=== PATIENT | female | born 1940 | race Caucasian/White ===

== ENCOUNTER 2017-11-27 10:26 | Emergency (ER) | payer MEDICARE ==
[~2017-11-27] VITALS: Ht 157.5 cm; Wt 86.2 kg
[~2017-11-27 10:26] MED LIST: ALBU2.5V5 NEB; ALPR0.25 PO; AMLO5TAB7 PO; ASPI-630 PO; ATOR10TA60 PO; ATOR40TA PO; Aspirin PO; CLON1TAB4 PO; FLUT1DIS3 IH; FURO-69 PO; FURO20TA3 PO; GABA-585 PO; HYDR-210 PO; HYDR-2815 PO; HYDR1TAB20 PO; LEVO50TA PO; LISI-334 PO; LISI10TA2 PO; METO-239 PO; METO25TA4 PO; POLY119P4 PO; POTA10TA31 PO; POTA2VIA5 IV; TOPROL XL; TRAM-48 PO; TRAM100T2 PO; TRAM200T3 PO
[2017-11-27 10:58] LABS: BASO % 0 % (0-3); EOS # 0.1 x10^3/uL (0.0-0.7); EOS % 3 % (0-3); HEMATOCRIT 36.3 % (36.0-47.0); HEMOGLOBIN 12.1 g/dL (12.0-15.5); LYMPH % 24 % (24-48); MEAN CORPUSCULAR HEMOGLOBIN 29 pg (25-35); MEAN CORPUSCULAR HGB CONC 33 g/dL (31-37); MEAN CORPUSCULAR VOLUME 88 fL (79-100); MONO # 0.5 x10^3/uL (0.0-1.1); MONO % 12 % (0-9); NEUT # 2.4 x10^3uL (1.8-7.7); NEUT % 60 % (31-73); PLATELET COUNT 228 x10^3/uL (140-400); RED BLOOD COUNT 4.14 x10^6/uL (3.50-5.40); RED CELL DISTRIBUTION WIDTH 13.5 % (11.5-14.5)
[2017-11-27 11:09] LABS: PROTHROMBIN TIME PATIENT 13.2 SEC (11.7-14.0)
--- NOTE | 2017-11-27 11:16 | PHYS DOC ---
Past Medical History Past Medical History: Anxiety, COPD, High Cholesterol, Hypertension Additional Past Medical Histor: home O2 @ 2LPM Past Surgical History: Cholecystectomy, Hip Replacement, Hysterectomy, Knee Replacement, Other Additional Past Surgical Histo: shoulder replacement Alcohol Use: None Drug Use: None Adult General Chief Complaint Chief Complaint: ALTERED MENTAL STATUS HPI HPI Patient is a 77 year old female who presents to the ED with altered mental status. Patient is not a very reliable historian. She was brought in to the ED via EMS after her roommate found that she had fallen off of her bed. She was on the floor for about 20 minutes. Patient reports she remembers falling and denies any trauma or loss of consciousness. Patient's roommate notes that she has been confused for the past 3 days; however, patient is not sure what he means by this and denies any confusion. She is alert and oriented only to person and slightly to situation. She denies shortness of breath, chest pain, headache, dizziness, abdominal pain, nausea, vomiting, numbness, or tingling. She is on 2L of continuous oxygen at home; however, when EMS arrived, she was on 0.5L of oxygen. Patient is unable to provide any more information at this time. Review of Systems Review of Systems Constitutional: Denies fever or chills Eyes: Denies change in visual acuity, redness, or eye pain HENT: Denies nasal congestion or sore throat Respiratory: Notes cough; Denies shortness of breath Cardiovascular: Denies chest pain or heart palpitations GI: Denies abdominal pain, nausea, vomiting, bloody stools or diarrhea : Denies dysuria or hematuria Musculoskeletal: Denies back pain or joint pain Integument: Denies rash or skin lesions Neurologic: Notes altered mental status and bilateral hand tremors; Denies headache, focal weakness or sensory changes Complete systems were reviewed and found to be within normal limits, except as documented in this note. Family History Family History Noncontributory Current Medications Current Medications Current Medications Medications (Trade) Dose Ordered Sig/Carmen Start Time Stop Time Status Last Admin Dose Admin Acetaminophen/ Hydrocodone Bitart (Lortab 5/325) 1 tab 1X ONCE 11/27/17 12:30 11/27/17 12:33 DC 11/27/17 12:45 1 TAB Sodium Chloride 1,000 ml @ 1,000 mls/hr 1X ONCE 11/27/17 11:00 10/5/18 11:59 DC 11/27/17 11:33 1,000 MLS/HR Allergies Allergies Allergies Coded Allergies Type Severity Reaction Last Updated Verified carvedilol Allergy Severe 02/19/13 Yes celecoxib Allergy Severe 02/19/13 Yes warfarin sodium Allergy Severe bleeding 02/19/13 Yes Penicillins Allergy Intermediate 02/19/13 Yes Physical Exam Physical Exam Constitutional: Well developed, well nourished, no acute distress HENT: Normocephalic, atraumatic, oropharynx moist Eyes: Conjunctiva normal, no discharge Neck: Normal range of motion, no tenderness, supple Cardiovascular: Heart rate regular rhythm, no murmur Lungs & Thorax: Bilateral breath sounds clear to auscultation Abdomen: Soft, nontender Skin: Warm, dry, no erythema Back: No tenderness, no CVA tenderness Extremities: No tenderness, ROM intact, no edema Neurologic: Alert and oriented X 2, tremors in bilateral hands, normal sensory function, no focal deficits noted Psychologic: Affect normal, judgement normal, mood normal Current Patient Data Vital Signs Vital Signs Date Time Temp Pulse Resp B/P (MAP) Pulse Ox O2 Delivery O2 Flow Rate FiO2 11/27/17 12:45 20 3 Nasal Cannula 11/27/17 11:45 102 11/27/17 10:42 98.7 156/69 (98) 2.0 98.7 Lab Values Laboratory Tests Test 11/27/17 10:40 11/27/17 11:30 White Blood Count 4.0 x10^3/uL (4.0-11.0) Red Blood Count 4.14 x10^6/uL (3.50-5.40) Hemoglobin 12.1 g/dL (12.0-15.5) Hematocrit 36.3 % (36.0-47.0) Mean Corpuscular Volume 88 fL (79-100) Mean Corpuscular Hemoglobin 29 pg (25-35) Mean Corpuscular Hemoglobin Concent 33 g/dL (31-37) Red Cell Distribution Width 13.5 % (11.5-14.5) Platelet Count 228 x10^3/uL (140-400) Neutrophils (%) (Auto) 60 % (31-73) Lymphocytes (%) (Auto) 24 % (24-48) Monocytes (%) (Auto) 12 % (0-9) H Eosinophils (%) (Auto) 3 % (0-3) Basophils (%) (Auto) 0 % (0-3) Neutrophils # (Auto) 2.4 x10^3uL (1.8-7.7) Lymphocytes # (Auto) 1.0 x10^3/uL (1.0-4.8) Monocytes # (Auto) 0.5 x10^3/uL (0.0-1.1) Eosinophils # (Auto) 0.1 x10^3/uL (0.0-0.7) Basophils # (Auto) 0.0 x10^3/uL (0.0-0.2) Prothrombin Time 13.2 SEC (11.7-14.0) Prothrombin Time INR 1.1 (0.8-1.1) PTT 33 SEC (24-38) Sodium Level 143 mmol/L (136-145) Potassium Level 3.5 mmol/L (3.5-5.1) Chloride Level 98 mmol/L (98-107) Carbon Dioxide Level 37 mmol/L (21-32) H Anion Gap 8 (6-14) Blood Urea Nitrogen 12 mg/dL (7-20) Creatinine 0.8 mg/dL (0.6-1.0) Estimated GFR (Cockcroft-Gault) 69.4 BUN/Creatinine Ratio 15 (6-20) Glucose Level 97 mg/dL (70-99) Lactic Acid Level 0.4 mmol/L (0.4-2.0) Calcium Level 8.4 mg/dL (8.5-10.1) L Magnesium Level 1.9 mg/dL (1.8-2.4) Total Bilirubin 0.6 mg/dL (0.2-1.0) Aspartate Amino Transferase (AST) 18 U/L (15-37) Alanine Aminotransferase (ALT) 15 U/L (14-59) Alkaline Phosphatase 96 U/L (46-116) Ammonia 20 mcmol/L (11-34) Creatine Kinase 45 U/L (26-192) Creatine Kinase MB (Mass) 0.8 ng/mL (0.0-3.6) Creatine Kinase MB Relative Index % (0-4) Troponin I Quantitative < 0.017 ng/mL (0.000-0.055) Total Protein 6.1 g/dL (6.4-8.2) L Albumin 3.0 g/dL (3.4-5.0) L Albumin/Globulin Ratio 1.0 (1.0-1.7) Ethyl Alcohol Level < 10 mg/dL (0-10) Urine Collection Type U cath Urine Color Yellow Urine Clarity Clear Urine pH 6.5 Urine Specific [place] 1.015 Urine Protein Negative mg/dL (NEG-TRACE) Urine Glucose (UA) Negative mg/dL (NEG) Urine Ketones (Stick) Negative mg/dL (NEG) Urine Blood Negative (NEG) Urine Nitrite Negative (NEG) Urine Bilirubin Negative (NEG) Urine Urobilinogen Dipstick 1.0 mg/dL (0.2 mg/dL) Urine Leukocyte Esterase Negative (NEG) Urine RBC Occ /HPF (0-2) Urine WBC 1-4 /HPF (0-4) Urine Squamous Epithelial Cells Few /LPF Urine Bacteria 0 /HPF (0-FEW) Urine Mucus Mod /LPF Urine Opiates Screen Pos (NEG) Urine Methadone Screen Neg (NEG) Urine Barbiturates Neg (NEG) Urine Phencyclidine Screen Neg (NEG) Urine Amphetamine/Methamphetamine Neg (NEG) Urine Benzodiazepines Screen Neg (NEG) Urine Cocaine Screen Neg (NEG) Urine Cannabinoids Screen Neg (NEG) Urine Ethyl Alcohol Neg (NEG) Laboratory Tests 11/27/17 10:40 Laboratory Tests 11/27/17 10:40 EKG EKG @ 10:44, normal sinus rhythm at 81 bpm, no ST elevations or reciprocal changes; doubt ischemic etiology Radiology/Procedures Radiology/Procedures PROCEDURE: PORTABLE CHEST 1V Single view of the chest. 11/27/2017 11:00 AM Indication: ALTERED MENTAL STATUS/ COUGH Comparison: Chest radiograph July 20, 2014 Findings: No pneumothorax is identified. Mild diffuse interstitial coarsening is seen. Findings could represent atypical infection or mild edema. There is mild patchy infiltrate in the left lung base. Mild patchy opacities are seen throughout the left lung which could represent atelectasis or pneumonia. Heart size is normal. No acute osseous findings are seen. Right shoulder arthroplasty noted. IMPRESSION: Patchy opacities in left lung posterior atelectasis or infiltrate. Mild diffuse interstitial thickening. Findings could represent edema or an atypical infectious process. Electronically signed by: Christiano Montero MD (11/27/2017 11:39 AM) [facility] PROCEDURE: CT HEAD AND CERVICAL SPINE WO CT head and cervical spine without contrast History: Altered mental status, fall Technique: Noncontrast CT imaging was performed of the head and cervical spine. Multiplanar reconstruction images are submitted. Exposure: One or more of the following individualized dose reduction techniques were utilized for this examination: 1. Automated exposure control 2. Adjustment of the mA and/or kV according to patient size 3. Use of iterative reconstruction technique. Head CT Comparison: March 07, 2014 Findings: No acute extra-axial or parenchymal hemorrhage is identified. There is no significant intra-axial mass effect, midline shift, or extra-axial fluid collection. The rolon-white differentiation of the major vascular territories is preserved. Ventricular size is within normal limits. There is mild supratentorial involutional change. The mastoid air cells and the visualized paranasal sinuses are aerated. There is no significant focal calvarial abnormality. Impression: 1. No acute intracranial abnormality is identified. Cervical spine CT Comparison: None Findings: There is some motion degradation. Cervical vertebral body stature is maintained. There is straightening of the cervical spine. There is negligible anterior spondylolisthesis at C4-C5 and T1-T2. There is more advanced degenerative disc disease C5-6 and C6-7, to lesser degree at C7-T1 minimally at C4-5. There is mild spondylosis greatest at C5-6 and C6-7. No significant cervical spinal stenosis is identified on this nonmyelographic exam. Atlantoaxial distance is within normal limits, associated degenerative change. There is adequate alignment of the lateral masses of C1 relative to C2. Occipital condylar-C1 articulation is preserved. There is multilevel cervical facet degenerative change. There is uncovertebral degenerative change greatest C5-6 and C6-7. There is [id number] narrowing of the left C5-6 and C6-7 neural foramina. There is no significant abnormality of the visualized lung apices. There is atherosclerotic calcification of the carotid arteries in the neck bilaterally, some medial deviation of the carotid arteries greater on the right. There may be a small right thyroid nodule about 0.6 m. There is a focus of calcification left thyroid gland about 0.5 cm. Impression: 1. No acute cervical spine fracture is identified. 2. There is degenerative disc disease greatest C5-6 and C6-7, mild spondylosis. There is multilevel facet degenerative change, mild uncovertebral degenerative change. There is [id number] left C5-6 and C6-7 neural foramina. 3. There may be a small right thyroid nodule. There is also focus of nonspecific calcification of the left thyroid gland. Electronically signed by: Joselito Fernandes MD (11/27/2017 12:29 PM) [facility] Course & Med Decision Making Course & Med Decision Making Patient is a 77 year old female who presents to the ED via EMS with altered mental status x 3 days and a fall. She is on 2L continuous oxygen at home. Pertinent labs and imaging studies were obtained and reviewed (see chart for details). EKG @ 10:44 showed normal sinus rhythm at [address] elevations or reciprocal changes. Doubt ischemic etiology. CBC and CMP showed no abnormalities. Chest x-ray showed patchy opacities in left lung posterior atelectasis or infiltrate. Mild diffuse interstitial thickening. Findings may represent edema or an atypical infectious process. CT of the head and cervical neck showed no acute cervical spine fracture, slight degenerative disc disease and a potential small right thyroid nodule. Showed no acute intracranial abnormalities. NIH score was 0. Patient stable for discharge with outpatient follow-up with PCP. Discussed findings and plan with patient and family, who acknowledge understanding and agreement. Dragon Disclaimer Dragon Disclaimer This electronic medical record was generated, in whole or in part, using a voice recognition dictation system. Departure Departure Impression: Primary Impression: Altered mental status Disposition: 01 HOME, SELF-CARE Condition: IMPROVED Referrals: Tian ALEXANDER MD (PCP) Patient Instructions: Altered Mental Status NIHSS Stroke Scale NIH Stroke Scale: NIH Stroke Scale Response (Comments) Value Level of Consciousness: 0 Alert/Responsive 0 LOC Questions: 0 Answers both correctly 0 LOC Commands: 0 Performs both tasks 0 Best Gaze: 0 Normal 0 Visual: 0 No visual loss 0 Facial Palsy: 0 Normal, symmetrical 0 Motor - Left Arm 0 No drift 0 Motor - Right Arm 0 No drift 0 Motor - Left Leg 0 No drift 0 Motor: Right Leg 0 No drift 0 Limb Ataxia: 0 Absent 0 Sensory: 0 No loss 0 Best Language: 0 Normal 0 Dysathria: 0 Normal 0 Extinction and Inattention: 0 Normal 0 Total 0 Problem Qualifiers Primary Impression: Altered mental status Altered mental status type: unspecified Qualified Codes: R41.82 - Altered mental status, unspecified STEVEN ECKERT DO Nov 27, 2017 11:16
[2017-11-27 11:18] LABS: CALCIUM 8.4 mg/dL (8.5-10.1); CREATININE 0.8 mg/dL (0.6-1.0); GFR 69.4; POTASSIUM 3.5 mmol/L (3.5-5.1)
[2017-11-27 11:23] LABS: MAGNESIUM 1.9 mg/dL (1.8-2.4); TOTAL BILIRUBIN 0.6 mg/dL (0.2-1.0); TOTAL PROTEIN 6.1 g/dL (6.4-8.2)
[2017-11-27 11:31] LABS: CREATINE KINASE 45 U/L (26-192)
[2017-11-27] MEDS: IV NORMAL SALINE 1000ML BAG 1,000 ML IV ONE (11:33)
--- NOTE | 2017-11-27 11:43 | RAD ---
Single view of the chest. 11/27/2017 11:00 AM Indication: ALTERED MENTAL STATUS/ COUGH Comparison: Chest radiograph July 20, 2014 Findings: No pneumothorax is identified. Mild diffuse interstitial coarsening is seen. Findings could represent atypical infection or mild edema. There is mild patchy infiltrate in the left lung base. Mild patchy opacities are seen throughout the left lung which could represent atelectasis or pneumonia. Heart size is normal. No acute osseous findings are seen. Right shoulder arthroplasty noted. IMPRESSION: Patchy opacities in left lung posterior atelectasis or infiltrate. Mild diffuse interstitial thickening. Findings could represent edema or an atypical infectious process. Electronically signed by: Christiano Montero MD (11/27/2017 11:39 AM) [id number]
[2017-11-27 11:44] LABS: BILIRUBIN,URINE NEGATIVE (NEG); CLARITY,URINE CLEAR; COLOR,URINE YELLOW; NITRITE,URINE NEGATIVE (NEG); PH,URINE 6.5; PROTEIN,URINE NEGATIVE (NEG-TRACE)
[2017-11-27 11:51] LABS: BARBITURATES NEG (NEG); BENZODIAZEPINES NEG (NEG); CANNABINOIDS NEG (NEG); COCAINE NEG (NEG); METHADONE NEG (NEG); OPIATES POS (NEG); PHENCYCLIDINE NEG (NEG)
[2017-11-27 11:52] LABS: AMPHETAMINE/METHAMPHETAMINE NEG (NEG)
--- NOTE | 2017-11-27 11:53 | EKG ---
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
[2017-11-27 12:10] LABS: BACTERIA,URINE 0 /HPF (0-FEW); RBC,URINE OCC /HPF (0-2); SQUAMOUS EPITHELIAL CELL,UR FEW /LPF
--- NOTE | 2017-11-27 12:33 | RAD ---
CT head and cervical spine without contrast History: Altered mental status, fall Technique: Noncontrast CT imaging was performed of the head and cervical spine. Multiplanar reconstruction images are submitted. Exposure: One or more of the following individualized dose reduction techniques were utilized for this examination: 1. Automated exposure control 2. Adjustment of the mA and/or kV according to patient size 3. Use of iterative reconstruction technique. Head CT Comparison: March 07, 2014 Findings: No acute extra-axial or parenchymal hemorrhage is identified. There is no significant intra-axial mass effect, midline shift, or extra-axial fluid collection. The rolon-white differentiation of the major vascular territories is preserved. Ventricular size is within normal limits. There is mild supratentorial involutional change. The mastoid air cells and the visualized paranasal sinuses are aerated. There is no significant focal calvarial abnormality. Impression: 1. No acute intracranial abnormality is identified. Cervical spine CT Comparison: None Findings: There is some motion degradation. Cervical vertebral body stature is maintained. There is straightening of the cervical spine. There is negligible anterior spondylolisthesis at C4-C5 and T1-T2. There is more advanced degenerative disc disease C5-6 and C6-7, to lesser degree at C7-T1 minimally at C4-5. There is mild spondylosis greatest at C5-6 and C6-7. No significant cervical spinal stenosis is identified on this nonmyelographic exam. Atlantoaxial distance is within normal limits, associated degenerative change. There is adequate alignment of the lateral masses of C1 relative to C2. Occipital condylar-C1 articulation is preserved. There is multilevel cervical facet degenerative change. There is uncovertebral degenerative change greatest C5-6 and C6-7. There is [id number] narrowing of the left C5-6 and C6-7 neural foramina. There is no significant abnormality of the visualized lung apices. There is atherosclerotic calcification of the carotid arteries in the neck bilaterally, some medial deviation of the carotid arteries greater on the right. There may be a small right thyroid nodule about 0.6 m. There is a focus of calcification left thyroid gland about 0.5 cm. Impression: 1. No acute cervical spine fracture is identified. 2. There is degenerative disc disease greatest C5-6 and C6-7, mild spondylosis. There is multilevel facet degenerative change, mild uncovertebral degenerative change. There is [id number] left C5-6 and C6-7 neural foramina. 3. There may be a small right thyroid nodule. There is also focus of nonspecific calcification of the left thyroid gland. Electronically signed by: Joselito Fernandes MD (11/27/2017 12:29 PM) [facility]
[2017-11-27] MEDS: HYDROcodone/APAP 5/325MG 1 TAB TABLET PO ONE (12:45)
[2017-11-27 13:45] VITALS: BP 144/69
== END 2017-11-27 15:59 | disposition home or self-care (01) ==
LOC: ER 10:26
DX: R41.82 Altered mental status, unspecified (principal); R41.0 Disorientation, unspecified; J44.9 Chronic obstructive pulmonary disease, unspecified; I10 Essential (primary) hypertension; E78.00 Pure hypercholesterolemia, unspecified; F41.9 Anxiety disorder, unspecified; Z90.49 Acquired absence of other specified parts of digestive tract; Z90.710 Acquired absence of both cervix and uterus; Z88.0 Allergy status to penicillin; Z88.8 Allergy status to other drugs, medicaments and biological substances
CPT/HCPCS: 36415; 70450; 71045; 72125; 80053; 80307; 81001; 82140; 82553; 83605; 83735; 84484; 85025; 85610; 85730; 93005; 99285; G0480; J7030; G0479

== ENCOUNTER 2020-08-31 13:04 | Observation (INO) | payer OTHER, MEDICARE ==
[~2020-08-31] VITALS: Ht 157.5 cm; Wt 85.5 kg
[~2020-08-31 13:04] MED LIST changes: +AMLO-186 PO; -AMLO5TAB7 PO; -CLON1TAB4 PO; +CLONAZEPAM1 MG PO; -LISI-334 PO; +LISI10TA16 PO; -LISI10TA2 PO; +LISI20TA18 PO
[2020-08-31 13:38] LABS: BASO % 1 % (0-3); EOS # 0.3 x10^3/uL (0.0-0.7); EOS % 5 % (0-3); HEMATOCRIT 36.9 % (36.0-47.0); HEMOGLOBIN 12.2 g/dL (12.0-15.5); LYMPH # 1.6 x10^3/uL (1.0-4.8); LYMPH % 29 % (24-48); MEAN CORPUSCULAR HEMOGLOBIN 30 pg (25-35); MEAN CORPUSCULAR HGB CONC 33 g/dL (31-37); MEAN CORPUSCULAR VOLUME 90 fL (79-100); MONO # 0.5 x10^3/uL (0.0-1.1); MONO % 9 % (0-9); NEUT # 3.2 x10^3/uL (1.8-7.7); NEUT % 57 % (31-73); PLATELET COUNT 163 x10^3/uL (140-400); RED BLOOD COUNT 4.09 x10^6/uL (3.50-5.40); RED CELL DISTRIBUTION WIDTH 14.7 % (11.5-14.5); WHITE BLOOD COUNT 5.6 x10^3/uL (4.0-11.0)
[2020-08-31 13:49] LABS: CALCIUM 8.5 mg/dL (8.5-10.1); CREATININE 0.9 mg/dL (0.6-1.0); GFR 60.2; POTASSIUM 3.9 mmol/L (3.5-5.1)
[2020-08-31 13:56] LABS: ALBUMIN 3.8 g/dL (3.4-5.0); ALBUMIN/GLOBULIN RATIO 1.3 (1.0-1.7); MAGNESIUM 2.2 mg/dL (1.8-2.4); TOTAL BILIRUBIN 0.4 mg/dL (0.2-1.0); TOTAL PROTEIN 6.7 g/dL (6.4-8.2)
[2020-08-31] MEDS ORDERED: MORPHINE SULFATE 4 MG/ML INJ. IV ONE ×2 (14:00→17:15)
[2020-08-31] MEDS ORDERED: ONDANSETRON PF 4 MG/2 ML VIAL. IVP ONE (14:00)
--- NOTE | 2020-08-31 14:33 | RAD ---
XR CHEST 1V History: Reason: chest pain / Spl. Instructions: / History: Comparison: November 27, 2017 Findings: Patchy bibasilar opacities. No pleural effusion. No pneumothorax. Right shoulder arthroplasty. Left upper lung nodular opacity measures 4 mm projecting between the third and fourth posterior ribs. Impression: 1. Patchy bibasilar opacities, may represent atelectasis or developing consolidations. If persistent clinical concern, recommend follow-up. 2. Left upper lung nodular opacity, may represent summation artifact or nodule. Recommend follow-up. Electronically signed by: Ben Gallegos DO (08/31/2020 2:31 PM) [id number]
--- NOTE | 2020-08-31 15:04 | PHYS DOC ---
Past Medical History Past Medical History: Anxiety, COPD, High Cholesterol, Hypertension Additional Past Medical Histor: HOME O2, POLIO, Past Surgical History: Appendectomy, Cholecystectomy, Hip Replacement, Hysterectomy, Knee Replacement, Tonsillectomy Additional Past Surgical Histo: SHOULDER SURGERY, ADENOIDECTOMY Smoking Status: Former Smoker Alcohol Use: None Drug Use: None General Adult EDM: Chief Complaint: CHEST PAIN HPI: HPI: Patient is a 79 year old female who was brought here by EMS from home due to substernal chest pain that started this morning. Patient was given nitroglycerin and aspirin by EMS on route, her pain improved slightly. Patient said the pain radiated into her back. Patient denies any fever. Patient says he has COPD, however has cough for couple days as well. Patient was vaccinated for COVID-19 4 months ago. Patient denies any abdominal pain, no nausea vomiting. Review of Systems: Review of Systems: Constitutional: Denies fever or chills. [] Eyes: Denies change in visual acuity. [] HENT: Denies nasal congestion or sore throat. [] Respiratory: Positive for cough, no trouble breathing Cardiovascular: Positive for chest pain, no edema GI: Denies abdominal pain, nausea, vomiting, bloody stools or diarrhea. [] : Denies dysuria. [] Musculoskeletal: Denies back pain or joint pain. [] Integument: Denies rash. [] Neurologic: Denies headache, focal weakness or sensory changes. [] Endocrine: Denies polyuria or polydipsia. [] Lymphatic: Denies swollen glands. [] Psychiatric: Denies depression or anxiety. [] Heart Score: C/O Chest Pain: Yes HEART Score for Chest Pain: HEART Score for Chest Pain Response (Comments) Value History Moderately Suspicious 1 ECG Nonspecific Repolarizatio 1 Age > 65 2 Risk Factors >3 Risk Factors or Hx CAD 2 Troponin < Normal Limit 0 Total 6 Risk Factors: Risk Factors: DM, Current or recent (<one month) smoker, HTN, HLP, family hist ory of CAD, obesity. Risk Scores: Score 0 - 3: 2.5% MACE over next 6 weeks - Discharge Home Score 4 - 6: 20.3% MACE over next 6 weeks - Admit for Clinical Observation Score 7 - 10: 72.7% MACE over next 6 weeks - Early Invasive Strategies Current Medications: Current Medications Medications (Trade) Dose Ordered Sig/Carmen Start Time Stop Time Status Last Admin Dose Admin Morphine Sulfate (Morphine Sulfate) 4 mg 1X ONCE 08/31/20 14:00 08/31/20 14:01 DC 08/31/20 14:06 4 MG Ondansetron HCl (Zofran) 4 mg 1X ONCE 08/31/20 14:00 08/31/20 14:01 DC 08/31/20 14:09 4 MG Allergies: Allergies: Allergies Coded Allergies Type Severity Reaction Last Updated Verified carvedilol Allergy Severe 02/19/13 Yes celecoxib Allergy Severe 02/19/13 Yes warfarin sodium Allergy Severe bleeding 02/19/13 Yes Penicillins Allergy Intermediate 02/19/13 Yes Physical Exam: PE: Constitutional: Well developed, well nourished, no acute distress, non-toxic appearance. [] HENT: Normocephalic, atraumatic, bilateral external ears normal, oropharynx moist, no oral exudates, nose normal. [] Eyes: PERRLA, EOMI, conjunctiva normal, no discharge. [] Neck: Normal range of motion, no tenderness, supple, no stridor. [] Cardiovascular:Heart rate regular rhythm, no murmur [] Lungs & Thorax: Bilateral breath sounds clear to auscultation [] Abdomen: Bowel sounds normal, soft, no tenderness, no masses, no pulsatile masses. [] Skin: Warm, dry, no erythema, no rash. [] Back: No tenderness, no CVA tenderness. [] Extremities: No tenderness, no cyanosis, no clubbing, ROM intact, no edema. [] Neurologic: Alert and oriented X 3, normal motor function, normal sensory function, no focal deficits noted. [] Psychologic: Affect normal, judgement normal, mood normal. [] Current Patient Data: Labs: Laboratory Tests Test 08/31/20 13:15 White Blood Count 5.6 x10^3/uL (4.0-11.0) Red Blood Count 4.09 x10^6/uL (3.50-5.40) Hemoglobin 12.2 g/dL (12.0-15.5) Hematocrit 36.9 % (36.0-47.0) Mean Corpuscular Volume 90 fL (79-100) Mean Corpuscular Hemoglobin 30 pg (25-35) Mean Corpuscular Hemoglobin Concent 33 g/dL (31-37) Red Cell Distribution Width 14.7 % (11.5-14.5) H Platelet Count 163 x10^3/uL (140-400) Neutrophils (%) (Auto) 57 % (31-73) Lymphocytes (%) (Auto) 29 % (24-48) Monocytes (%) (Auto) 9 % (0-9) Eosinophils (%) (Auto) 5 % (0-3) H Basophils (%) (Auto) 1 % (0-3) Neutrophils # (Auto) 3.2 x10^3/uL (1.8-7.7) Lymphocytes # (Auto) 1.6 x10^3/uL (1.0-4.8) Monocytes # (Auto) 0.5 x10^3/uL (0.0-1.1) Eosinophils # (Auto) 0.3 x10^3/uL (0.0-0.7) Basophils # (Auto) 0.0 x10^3/uL (0.0-0.2) Sodium Level 139 mmol/L (136-145) Potassium Level 3.9 mmol/L (3.5-5.1) Chloride Level 99 mmol/L (98-107) Carbon Dioxide Level 39 mmol/L (21-32) H Anion Gap 1 (6-14) L Blood Urea Nitrogen 14 mg/dL (7-20) Creatinine 0.9 mg/dL (0.6-1.0) Estimated GFR (Cockcroft-Gault) 60.2 BUN/Creatinine Ratio 16 (6-20) Glucose Level 118 mg/dL (70-99) H Calcium Level 8.5 mg/dL (8.5-10.1) Magnesium Level 2.2 mg/dL (1.8-2.4) Total Bilirubin 0.4 mg/dL (0.2-1.0) Aspartate Amino Transferase (AST) 21 U/L (15-37) Alanine Aminotransferase (ALT) 19 U/L (14-59) Alkaline Phosphatase 84 U/L (46-116) Troponin I Quantitative < 0.017 ng/mL (0.000-0.055) ZU-Ebh-R-Type Natriuretic Peptide 267 pg/mL (0-449) Total Protein 6.7 g/dL (6.4-8.2) Albumin 3.8 g/dL (3.4-5.0) Albumin/Globulin Ratio 1.3 (1.0-1.7) Lipase 97 U/L (73-393) Laboratory Tests 08/31/20 13:15 Laboratory Tests 08/31/20 13:15 Vital Signs: Vital Signs Date Time Temp Pulse Resp B/P (MAP) Pulse Ox O2 Delivery O2 Flow Rate FiO2 08/31/20 13:07 98.2 66 12 154/75 98 Room Air 3.0 98.2 EKG: EKG: EKG was done as 719, heart rate of 64 bpm, sinus rhythm, no ST segment elevation. Radiology/Procedures: Radiology/Procedures: [][address] [address] IMAGING REPORT Signed PATIENT: ELOINA PALENCIA ACCOUNT: [id number] : 1940 LOCATION: ER AGE: 79 SEX: F EXAM STATUS: PRE ER ORD. PHYSICIAN: OLIVA SMITH DO REASON: chest pain PROCEDURE: PORTABLE CHEST 1V XR CHEST 1V History: Reason: chest pain / Spl. Instructions: / History: Comparison: November 27, 2017 Findings: Patchy bibasilar opacities. No pleural effusion. No pneumothorax. Right shoulder arthroplasty. Left upper lung nodular opacity measures 4 mm projecting between the third and fourth posterior ribs. Impression: 1. Patchy bibasilar opacities, may represent atelectasis or developing consolidations. If persistent clinical concern, recommend follow-up. 2. Left upper lung nodular opacity, may represent summation artifact or nodule. Recommend follow-up. Electronically signed by: Ben Gallegos DO (08/31/2020 2:31 PM) [id number] DICTATED and SIGNED BY: BEN GALLEGOS DO DATE: 08/31/20 [id number] [place], [place] [id number] IMAGING REPORT Signed PATIENT: ELOINA PALENCIA ACCOUNT: [id number] : 1940 LOCATION: ER AGE: 79 SEX: F EXAM STATUS: REG ER ORD. PHYSICIAN: OLIVA SMITH DO REASON: chest pain, soa PROCEDURE: CT ANGIOGRAPHY CHEST EXAM: CT chest with contrast - pulmonary embolus protocol CLINICAL HISTORY: Reason: chest pain, soa / Spl. Instructions: OMNI 350 INJ.100 MLS / History: . COMPARISON: None. TECHNIQUE: CT of the chest following the administration of intravenous contrast during the pulmonary arterial phase. Axial, coronal and sagittal reformatted images were generated including MIP images. ---PQRS compliance statement - One or more of the following individualized dose reduction techniques were utilized for this study: 1. Automated exposure control 2. Adjustment of the mA and/or kV according to patient size 3. Use of iterative reconstruction technique--- FINDINGS: CHEST: Diagnostic quality: Adequate. Pulmonary emboli: None seen Right heart strain: None Pulmonary arteries: Normal in caliber. Coronary calcifications are seen. Heart is not enlarged. Trace pericardial fluid is likely physiologic. No pleural effusion or pneumothorax. Aortic calcifications are noted. Emphysematous changes are seen. Linear opacities in lower lobes and lingula likely scarring/atelectasis. Calcified granuloma are seen. Streak artifacts from the right shoulder hardware limits evaluation of the thoracic inlet and upper thorax. No mediastinal or hilar lymphadenopathy. No axillary lymphadenopathy. Visualized Upper abdomen: Unremarkable Bones: No aggressive osseous lesion is seen. IMPRESSION: No evidence for acute pulmonary embolus. Electronically signed by: Min Ross MD (08/31/2020 4:42 PM) [facility] DICTATED and SIGNED BY: MIN ROSS MD DATE: 08/31/20 [id number] 0 Course & Med Decision Making: Course & Med Decision Making Pertinent Labs and Imaging studies reviewed. (See chart for details) Patient is a 79-year-old female who presented to ER due to chest pain. EKG cardiac enzymes came back normal so far. Patient was given nitroglycerin, chest pain were improved, CTA of the chest did not show any evidence of dissection or blood clot No pneumonia. Patient will be admitted to the hospital for further evaluation treatment discussed with the hospitalist on-call Dr. Homar Delarosa who agreed to admit the patient Thang Disclaimer: Thang Disclaimer: This electronic medical record was generated, in whole or in part, using a voice recognition dictation system. Departure Departure Impression: Primary Impression: Chest pain Disposition: ADMITTED INPATIENT Admitting Physician: HUDSON Condition: STABLE (DR. DELAROSA) Referrals: Tian ALEXANDER MD (PCP) OLIVA SMITH DO Aug 31, 2020 15:04
[2020-08-31] MEDS ORDERED: IOHEXOL 350 MG/ML 100 ML VIAL. IV ONE (15:45)
[2020-08-31] MEDS ORDERED: CONTRAST GIVEN. MC PRN (16:00)
--- NOTE | 2020-08-31 16:44 | RAD ---
EXAM: CT chest with contrast - pulmonary embolus protocol CLINICAL HISTORY: Reason: chest pain, soa / Spl. Instructions: OMNI 350 INJ.100 MLS / History: . COMPARISON: None. TECHNIQUE: CT of the chest following the administration of intravenous contrast during the pulmonary arterial phase. Axial, coronal and sagittal reformatted images were generated including MIP images. ---PQRS compliance statement - One or more of the following individualized dose reduction techniques were utilized for this study: 1. Automated exposure control 2. Adjustment of the mA and/or kV according to patient size 3. Use of iterative reconstruction technique--- FINDINGS: CHEST: Diagnostic quality: Adequate. Pulmonary emboli: None seen Right heart strain: None Pulmonary arteries: Normal in caliber. Coronary calcifications are seen. Heart is not enlarged. Trace pericardial fluid is likely physiologi c. No pleural effusion or pneumothorax. Aortic calcifications are noted. Emphysematous changes are seen. Linear opacities in lower lobes and lingula likely scarring/atelectasis. Calcified granuloma are seen. Streak artifacts from the right shoulder hardware limits evaluation of the thoracic inlet and upper t horax. No mediastinal or hilar lymphadenopathy. No axillary lymphadenopathy. Visualized Upper abdomen: Unremarkable Bones: No aggressive osseous lesion is seen. IMPRESSION: No evidence for acute pulmonary embolus. Electronically signed by: Min Hollins MD (08/31/2020 4:42 PM) ALVARO
[2020-08-31] MEDS ORDERED: MORPHINE SULFATE 2 MG/ML INJ. IV PRN (17:15)
[2020-08-31] MEDS ORDERED: ONDANSETRON PF 4 MG/2 ML VIAL. IV PRN (17:15)
[2020-08-31] MEDS ORDERED: hydrALAZINE 20 MG/ML VIAL. IVP PRN (18:15)
[2020-08-31] MEDS ORDERED: traMADol 50 MG TABLET PO PRN (18:15)
[2020-08-31] MEDS ORDERED: ALPRAZolam 0.25 MG TABLET PO PRN (18:15)
--- NOTE | 2020-08-31 18:16 | EKG ---
[facility] [address] [place] [address] Test Date: 2020-08-31 Test Time: 13:06:22 Pat Name: ELOINA PALENCIA Department: Room: ED HOLD 19 Gender: F Coater [employer] Linings: : 1940 Requested By: OLIVA SMITH Order Number: [id number] Reading MD: Francesco Gonzalez MD Measurements Intervals [place] Rate: 64 P: AR: QRS: -14 QRSD: 80 T: 43 QT: 418 QTc: 435 Interpretive Statements SR SEPTAL INFARCT PATTERN NON-SPECIFIC ST/T CHANGES Electronically Signed On 09-01-2020 10:22:15 CDT by Francesco Gonzalez MD
--- NOTE | 2020-08-31 18:17 | EKG ---
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
--- NOTE | 2020-08-31 19:21 | PDOC1 ---
History and Physical Date of Admission Date of Admission DATE: 08/31/20 TIME: 19:00 Identification/Chief Complaint Chief Complaint Chest pain Source Source: Caregiver, Chart review, Patient History of Present Illness History of Present Illness Patient is a 79-year-old female with past medical history CVA, HTN, HLD, COPD on 2-3 L of oxygen at baseline, who presents to the ED with complaints of substernal chest pain since this morning. She reports a "thumping pain", 10/02. She noticed that her symptoms were related to GERD, and she took some home Pepto-Bismol with some improvement. When her symptoms return she came to the ED for further evaluation. EMS provided nitroglycerin and aspirin which slightly improved her symptoms. In the ED she received some morphine and Zofran which also helped her symptoms. States she has been vaccinated against COVID-19. Denies any abdominal pain, nausea, or vomiting. Initial work-up showed normal cardiac enzymes, EKG with left axis deviation. Blood pressure in ED was as high as 206/86 mmHg. Given her risk factors and advanced age, will admit patient for further medical management. Past Medical History Past Medical History CVA, COPD, HLD, HTN, anxiety, polio Past Surgical History Past Surgical History Appendectomy, Cholecystectomy, Hip Replacement, Hysterectomy, Knee Replacement, Tonsillectomy, adenoidectomy, shoulder surgery Family History Family History: Coronary Artery Disease, Hypertension Social History Smoke: Quit ALCOHOL: none Drugs: None Current Problem List Problem List Problems Medical Problems: (1) Chest pain Status: Acute Current Medications Current Medications Current Medications Ondansetron HCl (Zofran) 4 mg 1X ONCE IVP Last administered on 08/31/20at 14:09; Start 08/31/20 at 14:00; Stop 08/31/20 at 14:01; Status DC Morphine Sulfate (Morphine Sulfate) 4 mg 1X ONCE IV Last administered on 08/31/20at 14:06; Start 08/31/20 at 14:00; Stop 08/31/20 at 14:01; Status DC Iohexol (Omnipaque 350 Mg/ml) 100 ml 1X ONCE IV Last administered on 08/31/20at 16:14; Start 08/31/20 at 15:45; Stop 08/31/20 at 15:47; Status DC Info (CONTRAST GIVEN -- Rx MONITORING) 1 each PRN DAILY PRN MC SEE COMMENTS; Start 08/31/20 at 16:00; Stop 09/02/20 at 15:59 Morphine Sulfate (Morphine Sulfate) 4 mg 1X ONCE IV Last administered on 08/31/20at 17:13; Start 08/31/20 at 17:15; Stop 08/31/20 at 17:16; Status DC Ondansetron HCl (Zofran) 4 mg PRN Q8HRS PRN IV NAUSEA/VOMITING; Start 08/31/20 at 17:15; Stop 09/01/20 at 17:14 Morphine Sulfate (Morphine Sulfate) 2 mg PRN Q2HR PRN IV PAIN; Start 08/31/20 at 17:15; Stop 09/01/20 at 17:14 Alprazolam (Xanax) 0.25 mg PRN TID PRN PO ANXIETY / AGITATION; Start 08/31/20 at 18:15 Amlodipine Besylate (Norvasc) 10 mg HS PO ; Start 08/31/20 at 21:00 Atorvastatin Calcium (Lipitor) 40 mg QHS PO ; Start 08/31/20 at 21:00 Furosemide (Lasix) 40 mg DAILY PO ; Start 09/01/20 at 09:00 Gabapentin (Neurontin) 600 mg QID PO ; Start 08/31/20 at 21:00 Levothyroxine Sodium (Synthroid) 50 mcg DAILY06 PO ; Start 09/01/20 at 06:00 Lisinopril (Prinivil) 20 mg DAILY PO ; Start 09/01/20 at 09:00 Polyethylene Glycol (miraLAX Powder BULK BOTTLE) 17 gm DAILY PO ; Start 09/01/20 at 09:00 Potassium Chloride (Klor-Con) 10 meq DAILYWBKFT PO ; Start 09/01/20 at 08:00 Clonazepam (KlonoPIN) 1 mg QHS PO ; Start 08/31/20 at 21:00 Aspirin (Ecotrin) 325 mg DAILYWBKFT PO ; Start 09/01/20 at 08:00 Tramadol HCl (Ultram) 50 mg PRN Q6HRS PRN PO MILD TO MODERATE PAIN; Start 08/31/20 at 18:15 Hydralazine HCl (Apresoline Inj) 20 mg PRN Q4HRS PRN IVP HYPERTENSION; Start 7/9/21 at 18:15 Active Scripts Active Lorcet 5-325 mg Tablet (Hydrocodone/Acetaminophen) 1 Each Tablet 1 Each PO Q6HRS Lisinopril 20 Mg Tablet 20 Mg PO DAILY [Toprol Xl] Albuterol Sulfate Neb Soln (Albuterol Sulfate) 2.5 Mg/3 Ml Vial.neb 1 Vial NEB PRN Q4HRS Advair 250-50 Diskus (Fluticasone/Salmeterol) 1 Each Disk.w.dev 1 Puff IH BID Miralax (Polyethylene Glycol 3350) 119 Gm Powder 17 Gm PO DAILY Synthroid (Levothyroxine Sodium) 50 Mcg Tablet 1 Tab PO DAILY [Aspirin] 325 MG Tablet.dr 325 Mg PO DAILYWBKFT Lipitor (Atorvastatin Calcium) 40 Mg Tablet 40 Mg PO QHS Reported Clonazepam 1 Mg Tablet 1 Tab PO QHS Xanax (Alprazolam) 0.25 Mg Tablet 0.25 Mg PO PRN TID Amlodipine Besylate 5 Mg Tablet 10 Mg PO HS Tramadol Hcl 100 Mg Tbmp.24hr 50 Mg PO QID Furosemide 20 Mg Tablet 40 Mg PO DAILY Potassium Chloride 10 Meq Tab.er.prt 10 Meq PO DAILY Gabapentin (Gabapentin) 100 Mg Capsule 600 Mg PO QID Allergies Allergies: Coded Allergies: carvedilol (Verified Allergy, Severe, 02/19/13) causes SOB celecoxib (Verified Allergy, Severe, 02/19/13) VOMITS BLOOD warfarin sodium (Verified Allergy, Severe, bleeding, 02/19/13) Penicillins (Verified Allergy, Intermediate, 02/19/13) ROS Review of System GENERAL: No history of weight change, weakness or fevers. SKIN: No bruising, hair changes or rashes. EYES: No blurred, double or loss of vision. NOSE AND THROAT: No history of nosebleeds, hoarseness or sore throat. HEART: Chest pain. Denies palpitations. LUNGS: Denies cough, hemoptysis, wheezing or shortness of breath. GASTROINTESTINAL: Denies nausea, vomiting, abdominal pain. GENITOURINARY: Denies dysuria, frequency, urgency, hematuria. NEUROLOGIC: Denies history of numbness, tingling, tremor or weakness. PSYCHIATRIC: Denies anxiety, denies depression. ENDOCRINE: No history of heat or cold intolerance, polyuria or polydipsia. EXTREMITIES: Denies muscle weakness, joint pain, pain on walking or stiffness. Physical Exam Physical Exam General: Alert, Oriented X3, Cooperative, mild distress HEENT: PERRLA, EOMI Lungs: Clear to auscultation, Normal air movement Heart: RRR, no murmurs Cardiovascular: S1, S2 Abdomen: Normal bowel sounds, Soft, No tenderness Extremities: No clubbing, No cyanosis Skin: No rashes, No significant lesion Neuro: Normal speech, Normal tone, Sensation intact Psych/Mental Status: Mental status NL, Mood NL Vitals Vitals Vital Signs Date Time Temp Pulse Resp B/P (MAP) Pulse Ox O2 Delivery O2 Flow Rate FiO2 08/31/20 16:22 68 206/86 (126) 100 Nasal Cannula 2.0 08/31/20 13:07 98.2 12 98.2 Labs Labs Laboratory Tests Test 08/31/20 13:15 08/31/20 17:38 White Blood Count 5.6 x10^3/uL (4.0-11.0) Red Blood Count 4.09 x10^6/uL (3.50-5.40) Hemoglobin 12.2 g/dL (12.0-15.5) Hematocrit 36.9 % (36.0-47.0) Mean Corpuscular Volume 90 fL (79-100) Mean Corpuscular Hemoglobin 30 pg (25-35) Mean Corpuscular Hemoglobin Concent 33 g/dL (31-37) Red Cell Distribution Width 14.7 % (11.5-14.5) Platelet Count 163 x10^3/uL (140-400) Neutrophils (%) (Auto) 57 % (31-73) Lymphocytes (%) (Auto) 29 % (24-48) Monocytes (%) (Auto) 9 % (0-9) Eosinophils (%) (Auto) 5 % (0-3) Basophils (%) (Auto) 1 % (0-3) Neutrophils # (Auto) 3.2 x10^3/uL (1.8-7.7) Lymphocytes # (Auto) 1.6 x10^3/uL (1.0-4.8) Monocytes # (Auto) 0.5 x10^3/uL (0.0-1.1) Eosinophils # (Auto) 0.3 x10^3/uL (0.0-0.7) Basophils # (Auto) 0.0 x10^3/uL (0.0-0.2) Sodium Level 139 mmol/L (136-145) Potassium Level 3.9 mmol/L (3.5-5.1) Chloride Level 99 mmol/L (98-107) Carbon Dioxide Level 39 mmol/L (21-32) Anion Gap 1 (6-14) Blood Urea Nitrogen 14 mg/dL (7-20) Creatinine 0.9 mg/dL (0.6-1.0) Estimated GFR (Cockcroft-Gault) 60.2 BUN/Creatinine Ratio 16 (6-20) Glucose Level 118 mg/dL (70-99) Calcium Level 8.5 mg/dL (8.5-10.1) Magnesium Level 2.2 mg/dL (1.8-2.4) Total Bilirubin 0.4 mg/dL (0.2-1.0) Aspartate Amino Transf (AST/SGOT) 21 U/L (15-37) Alanine Aminotransferase (ALT/SGPT) 19 U/L (14-59) Alkaline Phosphatase 84 U/L (46-116) Troponin I Quantitative < 0.017 ng/mL (0.000-0.055) < 0.017 ng/mL (0.000-0.055) VR-Ivf-Y-Type Natriuretic Peptide 267 pg/mL (0-449) Total Protein 6.7 g/dL (6.4-8.2) Albumin 3.8 g/dL (3.4-5.0) Albumin/Globulin Ratio 1.3 (1.0-1.7) Lipase 97 U/L (73-393) Laboratory Tests Test 08/31/20 13:15 08/31/20 17:38 White Blood Count 5.6 x10^3/uL (4.0-11.0) Red Blood Count 4.09 x10^6/uL (3.50-5.40) Hemoglobin 12.2 g/dL (12.0-15.5) Hematocrit 36.9 % (36.0-47.0) Mean Corpuscular Volume 90 fL (79-100) Mean Corpuscular Hemoglobin 30 pg (25-35) Mean Corpuscular Hemoglobin Concent 33 g/dL (31-37) Red Cell Distribution Width 14.7 % (11.5-14.5) Platelet Count 163 x10^3/uL (140-400) Neutrophils (%) (Auto) 57 % (31-73) Lymphocytes (%) (Auto) 29 % (24-48) Monocytes (%) (Auto) 9 % (0-9) Eosinophils (%) (Auto) 5 % (0-3) Basophils (%) (Auto) 1 % (0-3) Neutrophils # (Auto) 3.2 x10^3/uL (1.8-7.7) Lymphocytes # (Auto) 1.6 x10^3/uL (1.0-4.8) Monocytes # (Auto) 0.5 x10^3/uL (0.0-1.1) Eosinophils # (Auto) 0.3 x10^3/uL (0.0-0.7) Basophils # (Auto) 0.0 x10^3/uL (0.0-0.2) Sodium Level 139 mmol/L (136-145) Potassium Level 3.9 mmol/L (3.5-5.1) Chloride Level 99 mmol/L (98-107) Carbon Dioxide Level 39 mmol/L (21-32) Anion Gap 1 (6-14) Blood Urea Nitrogen 14 mg/dL (7-20) Creatinine 0.9 mg/dL (0.6-1.0) Estimated GFR (Cockcroft-Gault) 60.2 BUN/Creatinine Ratio 16 (6-20) Glucose Level 118 mg/dL (70-99) Calcium Level 8.5 mg/dL (8.5-10.1) Magnesium Level 2.2 mg/dL (1.8-2.4) Total Bilirubin 0.4 mg/dL (0.2-1.0) Aspartate Amino Transf (AST/SGOT) 21 U/L (15-37) Alanine Aminotransferase (ALT/SGPT) 19 U/L (14-59) Alkaline Phosphatase 84 U/L (46-116) Troponin I Quantitative < 0.017 ng/mL (0.000-0.055) < 0.017 ng/mL (0.000-0.055) OG-Yqc-O-Type Natriuretic Peptide 267 pg/mL (0-449) Total Protein 6.7 g/dL (6.4-8.2) Albumin 3.8 g/dL (3.4-5.0) Albumin/Globulin Ratio 1.3 (1.0-1.7) Lipase 97 U/L (73-393) Images Images PATIENT: ELOINA MARTELL ACCOUNT: [id number] : 1940 LOCATION: ER AGE: 79 SEX: F EXAM STATUS: PRE ER ORD. PHYSICIAN: OLIVA SMITH DO REASON: chest pain PROCEDURE: PORTABLE CHEST 1V XR CHEST 1V History: Reason: chest pain / Spl. Instructions: / History: Comparison: November 27, 2017 Findings: Patchy bibasilar opacities. No pleural effusion. No pneumothorax. Right shoulder arthroplasty. Left upper lung nodular opacity measures 4 mm projecting between the third and fourth posterior ribs. Impression: 1. Patchy bibasilar opacities, may represent atelectasis or developing consolidations. If persistent clinical concern, recommend follow-up. 2. Left upper lung nodular opacity, may represent summation artifact or nodule. Recommend follow-up. Electronically signed by: Ben Gallegos DO (08/31/2020 2:31 PM) [id number] DICTATED and SIGNED BY: BEN GALLEGOS DO DATE: 08/31/20 [id number] [facility] [address] [place] [address] IMAGING REPORT Signed PATIENT: ELOINA MARTELL ACCOUNT: [id number] : 1940 LOCATION: ER AGE: 79 SEX: F EXAM STATUS: REG ER ORD. PHYSICIAN: OLIVA MSITH DO REASON: chest pain, soa PROCEDURE: CT ANGIOGRAPHY CHEST EXAM: CT chest with contrast - pulmonary embolus protocol CLINICAL HISTORY: Reason: chest pain, soa / Spl. Instructions: OMNI 350 INJ.100 MLS / History: . COMPARISON: None. TECHNIQUE: CT of the chest following the administration of intravenous contrast during the pulmonary arterial phase. Axial, coronal and sagittal reformatted images were generated including MIP images. ---PQRS compliance statement - One or more of the following individualized dose reduction techniques were utilized for this study: 1. Automated exposure control 2. Adjustment of the mA and/or kV according to patient size 3. Use of iterative reconstruction technique--- FINDINGS: CHEST: Diagnostic quality: Adequate. Pulmonary emboli: None seen Right heart strain: None Pulmonary arteries: Normal in caliber. Coronary calcifications are seen. Heart is not enlarged. Trace pericardial fluid is likely physiologic. No pleural effusion or pneumothorax. Aortic calcifications are noted. Emphysematous changes are seen. Linear opacities in lower lobes and lingula likely scarring/atelectasis. Calcified granuloma are seen. Streak artifacts from the right shoulder hardware limits evaluation of the thoracic inlet and upper thorax. No mediastinal or hilar lymphadenopathy. No axillary lymphadenopathy. Visualized Upper abdomen: Unremarkable Bones: No aggressive osseous lesion is seen. IMPRESSION: No evidence for acute pulmonary embolus. VTE Prophylaxis Ordered VTE Prophylaxis Devices: No VTE Pharmacological Prophylaxi: Yes Assessment/Plan Assessment/Plan Chest pain Hypertensive urgency History CVA Plan: Initial troponin <0.017; will continue to trend Consultation placed to cardiology Echocardiogram from 03/07/2014 showed normal left ventricular systolic function and normal left ventricular segmental wall motion; EF 55-60% We will obtain limited echocardiogram Morphine, nitroglycerin as needed Resume home medications FEN - Cardiac diet PPX - Heparin FULL CODE Dispo - inpatient for above Advance Care Planning: Total time spent [id number] with patient 16 minutes in discussion with goals of care, comfort care, end-of-life care, pain management, code status; patient names her son (Bc Martell) as surrogate decision-maker. Justifications for Admission Other Justification TIGIST CORTES MD Aug 31, 2020 19:21
[2020-08-31] MEDS ORDERED: NITROGLYCERIN SUBLINGUAL 0.4 MG BOTTLE OF 25. SL PRN (19:30)
[2020-08-31] MEDS ORDERED: MAGNESIUM HYDROXIDE 2,400 MG/30 ML ORAL.SUSP. PO PRN (19:30)
[2020-08-31] MEDS ORDERED: CALCIUM CARBONATE 500 MG TAB.CHEW PO PRN (19:30)
[2020-08-31] MEDS ORDERED: ONDANSETRON PF 4 MG/2 ML VIAL. IVP PRN (19:30)
[2020-08-31] MEDS ORDERED: ACETAMINOPHEN 325 MG TABLET. PO PRN (19:30)
[2020-08-31] MEDS ORDERED: MORPHINE SULFATE 4 MG/ML INJ. IV PRN ×2 (19:30)
[2020-08-31] MEDS ORDERED: MAG HYDROX/ALUMINUM HYD/SIMETH 30 ML ORAL.SUSP PO PRN (19:30)
[2020-08-31 20:00] VITALS: BP 140/102
[2020-08-31] MEDS ORDERED: ATORVASTATIN CALCIUM 40 MG TABLET. PO SCH (21:00)
[2020-08-31] MEDS ORDERED: clonazePAM 0.5 MG TABLET PO SCH (21:00)
[2020-08-31] MEDS: GABAPENTIN 300 MG CAPSULE. PO SCH (21:49)
[2020-08-31] MEDS: HEPARIN for SUB-Q USE 5,000 UNIT/ML VIAL. SQ SCH (21:54)
[2020-08-31 22:32] VITALS: BP 123/63
[2020-09-01 02:50] VITALS: BP 111/62
[2020-09-01] MEDS ORDERED: LEVOTHYROXINE 50 MCG TABLET PO SCH (06:00)
[2020-09-01 07:00] VITALS: BP 105/54
[2020-09-01] MEDS ORDERED: PANTOPRAZOLE 40 MG TABLET.DR. PO SCH (07:30)
[2020-09-01] MEDS ORDERED: ASPIRIN ENTERIC COATED 325 MG TABLET.DR. PO SCH (08:00)
[2020-09-01] MEDS ORDERED: POTASSIUM CHLORIDE 10 MEQ TABLET.ER. PO SCH (08:00)
[2020-09-01] MEDS: GABAPENTIN 300 MG CAPSULE. PO SCH ×3 (08:38→18:25)
[2020-09-01] MEDS: HEPARIN for SUB-Q USE 5,000 UNIT/ML VIAL. SQ SCH (08:44)
[2020-09-01] MEDS ORDERED: POLYETHYLENE GLYCOL 3350 17 GM PACKET. PO SCH (09:00)
[2020-09-01] MEDS ORDERED: FUROSEMIDE 40 MG TABLET. PO SCH (09:00)
[2020-09-01] MEDS ORDERED: LISINOPRIL 20 MG TABLET PO SCH (09:00)
[2020-09-01] MEDS: HYDROcodone/APAP 5/325MG 1 TAB TABLET PO SCH ×3 (10:00→18:00)
--- NOTE | 2020-09-01 10:27 | PDOC2 ---
CARDIOLOGY CONSULT NOTE DATE OF SERVICE: DATE: 09/01/20 TIME: 10:24 CHIEF COMPLAINT: Chest pain HPI: Bruna is a 79-year-old woman who is been admitted to the hospital for evaluation of chest pain. She presented to the ER yesterday morning because of diffuse substernal chest pain which was nonradiating. She underwent extensive work-up in the ER but was noted to have an elevated blood pressure above 200. Her CT scan of the chest was unremarkable. Her EKG and biomarkers were also unremarkable. She is been admitted for further evaluation and treatment. In speaking with the patient she is mostly living a sedentary lifestyle in her apartment. She has COPD and has help around the house. She denies any syncope or palpitations. No prior cardiovascular interventions. PMHX: 1. Hypertension 2. Severe COPD 3. Tobacco abuse 4. Dyslipidemia SOCHX: She lives by herself. Denies any current alcohol, tobacco or illicit drug use. FAMHX: Noncontributory CURRENT MEDS: Current cardiovascular medications reviewed include lisinopril, Lasix, aspirin and amlodipine. ALLERGIES: Allergies Coded Allergies Type Severity Reaction Last Updated Verified carvedilol Allergy Severe 02/19/13 Yes Penicillins Allergy Intermediate 02/19/13 Yes celecoxib Adverse Reaction Severe 09/01/20 Yes warfarin sodium Adverse Reaction Severe bleeding 09/01/20 Yes ROS: Negative for 10 out of 14 systems reviewed unless otherwise mentioned above in HPI PHYSICAL EXAM: Vital Signs/I&O: Vital Signs Date Time Temp Pulse Resp B/P (MAP) Pulse Ox O2 Delivery O2 Flow Rate FiO2 09/01/20 08:32 70 105/54 09/01/20 07:00 98.4 18 98 Nasal Cannula 2.0 98.4 I & O 08/31/20 08/31/20 09/01/20 15:00 23:00 07:00 Intake Total 400 ml 200 ml Balance 400 ml 200 ml Physical Exam: The patient appeared well nourished and normally developed. Head exam is unremarkable. No scleral icterus or corneal arcus noted. Neck is without jugular venous distension, thyromegaly, or carotid bruits. Carotid upstrokes are brisk bilaterally. Lungs are clear to auscultation and percussion. Cardiac exam reveals the PMI to be normally sized and situated. Rhythm is regular. First and second heart sounds normal. No murmurs, rubs or gallops. Abdominal exam reveals normal bowel sounds, no masses, no organomegaly and no aortic enlargement. Extremities are nonedematous and both femoral and pedal pulses are normal. Msk: No traumua Neuro: No focal deficits DIAGNOSTIC TESTING: EKG reveals sinus rhythm with a prior septal infarct pattern. No acute ischemia Cardiac biomarkers are negative x3, BNP is within normal limits CT of the chest is unremarkable for any pulmonary embolus ASSESSMENT: 1. Hypertensive urgency 2. Obesity 3. Severe COPD on home O2 4. Dyslipidemia PLAN: 1. Overall the patient has a fairly low risk presentation. Despite having a blood pressure above 200 her cardiac enzymes are unremarkable. Her chest pain was likely triggered by hypertensive urgency. Currently her blood pressure is better controlled after initiation of her home medical therapy. 2. Continue home medications including lisinopril, aspirin, amlodipine. Her aspirin can likely be decreased to 81 mg daily. 3. We will plan for an outpatient ischemic evaluation in the next 7 to 10 days. Thank you for this consultation. The patient may be discharged from a cardiac perspective if she remains chest pain-free and has stable blood pressures through the morning. VALENTINO RÍOS MD Sep 01, 2020 10:27
[2020-09-01 10:54] VITALS: BP 123/59
--- NOTE | 2020-09-01 14:05 | PDOC ---
[employer] PROGRESS NOTE Date of Service DOS: DATE: 09/01/20 TIME: 14:01 Chief Complaint Chief Complaint Chest pain History of Present Illness History of Present Illness 09/01/2020 Patient was seen and evaluated at bedside During my assessment this morning she reports her symptoms have resolved for the most part and that her blood pressure has improved Cardiology consulted and recommended just meticulous blood pressure control Bedside RN updated on plan of care Possible discharge tomorrow Patient is a 79-year-old female with past medical history CVA, HTN, HLD, COPD on 2-3 L of oxygen at baseline, who presents to the ED with complaints of substerna l chest pain since this morning. She reports a "thumping pain", 10/02. She noticed that her symptoms were related to GERD, and she took some home Pepto- Bismol with some improvement. When her symptoms return she came to the ED for further evaluation. EMS provided nitroglycerin and aspirin which slightly improved her symptoms. In the ED she received some morphine and Zofran which also helped her symptoms. States she has been vaccinated against COVID-19. Denies any abdominal pain, nausea, or vomiting. Initial work-up showed normal cardiac enzymes, EKG with left axis deviation. Blood pressure in ED was as high as 206/86 mmHg. Given her risk factors and advanced age, will admit patient for further medical management. Vitals/I&O Vitals/I&O: Vital Signs Date Time Temp Pulse Resp B/P (MAP) Pulse Ox O2 Delivery O2 Flow Rate FiO2 09/01/20 11:41 98 Nasal Cannula 2.0 09/01/20 10:54 98.3 71 18 123/59 (80) 98.3 I & O 08/31/20 08/31/20 09/01/20 15:00 23:00 07:00 Intake Total 400 ml 200 ml Balance 400 ml 200 ml Physical Exam General: Alert, Oriented X3, mild distress Heart: Regular rate, Normal S1, Normal S2 Lungs: Other (Diffuse wheezing likely related to severe COPD) Abdomen: Normal bowel sounds, Soft, No tenderness Extremities: No clubbing, No edema, Normal pulses Skin: No rashes, No significant lesion Labs Labs: Laboratory Tests Test 08/31/20 17:38 08/31/20 20:09 Troponin I Quantitative < 0.017 ng/mL (0.000-0.055) < 0.017 ng/mL (0.000-0.055) Review of Systems Review of Systems: Patient says chest pain has resolved, does report baseline shortness of breath however Assessment and Plan Assessmemt and Plan Problems Medical Problems: (1) Chest pain Status: Acute hest pain Hypertensive urgency History CVA Plan: Initial troponin <0.017; remain negative Consultation placed to cardiology Echocardiogram from 03/07/2014 showed normal left ventricular systolic function and normal left ventricular segmental wall motion; EF 55-60% We will obtain limited echocardiogram Morphine, nitroglycerin as needed Resume home medications FEN - Cardiac diet PPX - Heparin FULL CODE Dispo - inpatient for above; likely discharge in the morning Problems: (1) CVA (cerebral infarction) Comment Review of Relevant I have reviewed the following items valeria (where applicable) has been applied. Medications: Current Medications Medications (Trade) Dose Ordered Sig/Carmen Route PRN Reason Start Time Stop Time Status Last Admin Dose Admin Iohexol (Omnipaque 350 Mg/ml) 100 ml 1X ONCE IV 08/31/20 15:45 08/31/20 15:47 DC 08/31/20 16:14 Morphine Sulfate (Morphine Sulfate) 4 mg 1X ONCE IV 08/31/20 17:15 08/31/20 17:16 DC 08/31/20 17:13 Amlodipine Besylate (Norvasc) 10 mg HS PO 08/31/20 21:00 08/31/20 21:49 Atorvastatin Calcium (Lipitor) 40 mg QHS PO 08/31/20 21:00 08/31/20 21:49 Furosemide (Lasix) 40 mg DAILY PO 09/01/20 09:00 09/01/20 08:34 Gabapentin (Neurontin) 600 mg QID PO 08/31/20 21:00 09/01/20 08:38 Levothyroxine Sodium (Synthroid) 50 mcg DAILY06 PO 09/01/20 06:00 09/01/20 06:25 Lisinopril (Prinivil) 20 mg DAILY PO 09/01/20 09:00 09/01/20 08:32 Polyethylene Glycol (miraLAX PACKET) 17 gm DAILY PO 09/01/20 09:00 09/01/20 08:34 Potassium Chloride (Klor-Con) 10 meq DAILYWBKFT PO 09/01/20 08:00 09/01/20 08:33 Clonazepam (KlonoPIN) 1 mg QHS PO 08/31/20 21:00 08/31/20 21:50 Aspirin (Ecotrin) 325 mg DAILYWBKFT PO 09/01/20 08:00 09/01/20 08:33 Pantoprazole Sodium (Protonix) 40 mg DAILYAC PO 09/01/20 07:30 09/01/20 08:32 Heparin Sodium (Porcine) (Heparin Sodium) 5,000 unit Q12HR SQ 08/31/20 20:00 09/01/20 08:44 Acetaminophen/ Hydrocodone Bitart (Lortab 5/325) 1 tab Q6HRS PO 09/01/20 10:00 09/01/20 11:41 Justifications for Admission Other Justification ELIESER VELAZCO MD Sep 01, 2020 14:05
[2020-09-01 15:00] VITALS: BP 90/64
[2020-09-01] MEDS ORDERED: ASPI-886 PO (15:52)
--- NOTE | 2020-09-01 15:55 | PDOC3 ---
Discharge Summary Visit Information Date of Admission: Aug 31, 2020 Date of Discharge: Sep 01, 2020 Admitting Diagnosis: chest pain Final Diagnosis Problems Medical Problems: (1) Chest pain Status: Acute Brief Hospital Course Allergies Allergies Coded Allergies Type Severity Reaction Last Updated Verified carvedilol Allergy Severe 02/19/13 Yes Penicillins Allergy Intermediate 02/19/13 Yes celecoxib Adverse Reaction Severe 09/01/20 Yes warfarin sodium Adverse Reaction Severe bleeding 09/01/20 Yes Vital Signs Vital Signs Date Time Temp Pulse Resp B/P (MAP) Pulse Ox O2 Delivery O2 Flow Rate FiO2 09/01/20 12:11 98 Nasal Cannula 2.0 09/01/20 10:54 98.3 71 18 123/59 (80) 98.3 Lab Results Laboratory Tests Test 08/31/20 13:15 08/31/20 17:38 08/31/20 20:09 White Blood Count 5.6 x10^3/uL (4.0-11.0) Red Blood Count 4.09 x10^6/uL (3.50-5.40) Hemoglobin 12.2 g/dL (12.0-15.5) Hematocrit 36.9 % (36.0-47.0) Mean Corpuscular Volume 90 fL (79-100) Mean Corpuscular Hemoglobin 30 pg (25-35) Mean Corpuscular Hemoglobin Concent 33 g/dL (31-37) Red Cell Distribution Width 14.7 % (11.5-14.5) Platelet Count 163 x10^3/uL (140-400) Neutrophils (%) (Auto) 57 % (31-73) Lymphocytes (%) (Auto) 29 % (24-48) Monocytes (%) (Auto) 9 % (0-9) Eosinophils (%) (Auto) 5 % (0-3) Basophils (%) (Auto) 1 % (0-3) Neutrophils # (Auto) 3.2 x10^3/uL (1.8-7.7) Lymphocytes # (Auto) 1.6 x10^3/uL (1.0-4.8) Monocytes # (Auto) 0.5 x10^3/uL (0.0-1.1) Eosinophils # (Auto) 0.3 x10^3/uL (0.0-0.7) Basophils # (Auto) 0.0 x10^3/uL (0.0-0.2) Sodium Level 139 mmol/L (136-145) Potassium Level 3.9 mmol/L (3.5-5.1) Chloride Level 99 mmol/L (98-107) Carbon Dioxide Level 39 mmol/L (21-32) Anion Gap 1 (6-14) Blood Urea Nitrogen 14 mg/dL (7-20) Creatinine 0.9 mg/dL (0.6-1.0) Estimated GFR (Cockcroft-Gault) 60.2 BUN/Creatinine Ratio 16 (6-20) Glucose Level 118 mg/dL (70-99) Calcium Level 8.5 mg/dL (8.5-10.1) Magnesium Level 2.2 mg/dL (1.8-2.4) Total Bilirubin 0.4 mg/dL (0.2-1.0) Aspartate Amino Transf (AST/SGOT) 21 U/L (15-37) Alanine Aminotransferase (ALT/SGPT) 19 U/L (14-59) Alkaline Phosphatase 84 U/L (46-116) Troponin I Quantitative < 0.017 ng/mL (0.000-0.055) < 0.017 ng/mL (0.000-0.055) < 0.017 ng/mL (0.000-0.055) SK-Gko-L-Type Natriuretic Peptide 267 pg/mL (0-449) Total Protein 6.7 g/dL (6.4-8.2) Albumin 3.8 g/dL (3.4-5.0) Albumin/Globulin Ratio 1.3 (1.0-1.7) Lipase 97 U/L (73-393) Laboratory Tests Test 08/31/20 17:38 08/31/20 20:09 Troponin I Quantitative < 0.017 ng/mL (0.000-0.055) < 0.017 ng/mL (0.000-0.055) Brief Hospital Course Admission HPI Patient is a 79-year-old female with past medical history CVA, HTN, HLD, COPD on 2-3 L of oxygen at baseline, who presents to the ED with complaints of substernal chest pain since this morning. She reports a "thumping pain", 10/02. She noticed that her symptoms were related to GERD, and she took some home Pepto-Bismol with some improvement. When her symptoms return she came to the ED for further evaluation. EMS provided nitroglycerin and aspirin which slightly improved her symptoms. In the ED she received some morphine and Zofran which also helped her symptoms. States she has been vaccinated against COVID-19. Denies any abdominal pain, nausea, or vomiting. Initial work-up showed normal cardiac enzymes, EKG with left axis deviation. Blood pressure in ED was as high as 206/86 mmHg. Given her risk factors and advanced age, will admit patient for further medical management 09/01/2020 Patient was seen and evaluated at bedside During my assessment this morning she reports her symptoms have resolved for the most part and that her blood pressure has improved Cardiology consulted and recommended just meticulous blood pressure control Bedside RN updated on plan of care Discharge today Discharge Information Condition at Discharge: Improved Disposition/Orders: D/C to Home Scheduled Albuterol Sulfate (Albuterol Sulfate Neb Soln) 2.5 Mg/3 Ml Vial.neb, 1 VIAL NEB PRN Q4HRS, #50 Prescribed by: STEVEN HER on 07/20/14 1230 Alprazolam (Xanax) 0.25 Mg Tablet, 0.25 MG PO PRN TID, (Reported) Entered as Reported by: JOSEE ROBERT on 04/09/13 0552 Last Action: Continued on 08/31/201805 by TIGIST CORTES MD Amlodipine Besylate (Amlodipine Besylate) 5 Mg Tablet, 10 MG PO HS, (Reported) Entered as Reported by: ROXANNE NARVAEZ on 02/19/13 1515 Last Action: Continued on 08/31/201805 by TIGIST CORTES MD Atorvastatin Calcium (Lipitor) 40 Mg Tablet, 40 MG PO QHS, #30 Prescribed by: JACKSON ALEXANDER on 03/09/14 0850 Last Action: Continued on 08/31/201805 by TIGIST CORTES MD Clonazepam (Clonazepam) 1 Mg Tablet, 1 TAB PO QHS, #30 (Reported) Entered as Reported by: Reinier Restrepo on 07/20/14 0431 Last Action: Converted on 08/31/201805 by TIGIST CORTES MD Fluticasone/Salmeterol (Advair 250-50 Diskus) 1 Each Disk.w.dev, 1 PUFF IH BID, #3 Ref 3 Prescribed by: STEVEN HER on 07/20/141229 Furosemide (Furosemide) 20 Mg Tablet, 40 MG PO DAILY, (Reported) Entered as Reported by: ROXANNE NARVAEZ on 02/19/131513 Last Action: Continued on 08/31/201805 by TIGIST CORTES MD Gabapentin (Gabapentin ) 100 Mg Capsule, 600 MG PO QID, (Reported) Entered as Reported by: ROXANNE NARVAEZ on 02/19/131510 Last Action: Continued on 08/31/201805 by TIGIST CORTES MD Hydrocodone/Acetaminophen (Lorcet 5-325 mg Tablet) 1 Each Tablet, 1 EACH PO Q6HRS, #120 Prescribed by: STEVEN HER on 07/20/141229 Last Action: Continued on 09/01/20920 by ELIESER VELAZCO MD Levothyroxine Sodium (Synthroid) 50 Mcg Tablet, 1 TAB PO DAILY, #30 Ref 5 Prescribed by: STEVEN HER on 07/20/141229 Last Action: Continued on 08/31/201805 by TIGIST CORTES MD Lisinopril (Lisinopril) 20 Mg Tablet, 20 MG PO DAILY for FOR HYPERTENSION, #30 Ref 0 Prescribed by: STEVEN HER on 07/20/141229 Last Action: Continued on 08/31/201805 by TIGIST CORTES MD Polyethylene Glycol 3350 (Miralax) 119 Gm Powder, 17 GM PO DAILY, #527 Prescribed by: STEVEN HER on 07/20/141229 Last Action: Continued on 08/31/201805 by TIGIST CORTES MD Potassium Chloride (Potassium Chloride) 10 Meq Tab.er.prt, 10 MEQ PO DAILY, (Reported) Entered as Reported by: ROXANNE NARVAEZ on 02/19/131513 Last Action: Continued on 08/31/201805 by TIGIST CORTES MD Tramadol Hcl (Tramadol Hcl) 100 Mg Tbmp.24hr, 50 MG PO QID, (Reported) Entered as Reported by: ROXANNE NARVAEZ on 02/19/131514 [Aspirin] 325 MG TABLET.DR, 325 MG PO DAILYWBKFT Prescribed by: JACKSON ALEXANDER on 03/09/14 0850 Last Action: Converted on 08/31/201805 by TIGIST CORTES MD Miscellaneous Medications [Toprol Xl] Prescribed by: STEVEN HER on 07/20/14 1230 Justicifation of Admission Dx: Justifications for Admission: Justification of Admission Dx: Comment: (chest pain) ELIESER VELAZCO MD Sep 01, 2020 15:55
--- NOTE | 2020-09-01 19:40 | NUR ---
Discharge Note: ELOINA PALENCIA Discharge instructions and discharge home medications reviewed with Patient and a copy given. All questions have been answered and understanding verbalized. The following instructions and handouts were given: Chest pain, cardiac diet. IV discontinued, no complications Patient discharged to home with self care.
[2020-09-02] MEDS ORDERED: ASPIRIN ENTERIC COATED 81 MG TABLET.DR. PO SCH (08:00)
== END 2020-09-01 18:45 | disposition home or self-care (01) ==
LOC: ER 13:04 → ED HOLD 16:56 → 2 SOUTH 19:14
PROVIDERS: ADMIT Family Medicine; ATTEND Family Medicine
DX: R07.89 Other chest pain (principal); I63.9 Cerebral infarction, unspecified; J44.9 Chronic obstructive pulmonary disease, unspecified; E78.5 Hyperlipidemia, unspecified; I16.0 Hypertensive urgency; I10 Essential (primary) hypertension; E78.00 Pure hypercholesterolemia, unspecified; F41.9 Anxiety disorder, unspecified; E66.9 Obesity, unspecified; K21.9 Gastro-esophageal reflux disease without esophagitis; Z79.51 Long term (current) use of inhaled steroids; Z79.890 Hormone replacement therapy; Z79.899 Other long term (current) drug therapy; Z86.73 Personal history of transient ischemic attack (TIA), and cerebral infarction without residual deficits; Z90.49 Acquired absence of other specified parts of digestive tract; Z90.710 Acquired absence of both cervix and uterus; Z96.611 Presence of right artificial shoulder joint; Z96.649 Presence of unspecified artificial hip joint; Z96.659 Presence of unspecified artificial knee joint; Z99.81 Dependence on supplemental oxygen; Z98.890 Other specified postprocedural states; Z87.891 Personal history of nicotine dependence; Z79.82 Long term (current) use of aspirin; Z68.34 Body mass index [BMI] 34.0-34.9, adult
CPT/HCPCS: 36415; 71045; 71275; 80053; 83690; 83735; 83880; 84484; 85025; 93005; 96372; 96374; 96375; 96376; 99285; G0378; J1644; J2270; J2405; Q9967; G0379

== ENCOUNTER → 2020-12-03 | Outpatient (CLI) | payer OTHER, MEDICARE ==
[~2020-12-03] MED LIST changes: +ASPI-886 PO; +REGADENOSON 0.4 MG/5 ML DISP.SYRIN. IV ONE
--- NOTE | 2020-12-03 13:19 | CARD ---
MR#: [id number] Date of Study: 12/03/2020 Ordering Physician: VALENTINO RÍOS, Referring Physician: VALENTINO RÍOS, Tech: Rodney Grace [facility] APPROVED REPORT EXAM: Two-dimensional and M-mode echocardiogram with Doppler and color Doppler. Other Information Quality : FairHR: 67bpm Rhythm : NSRTechnically limited study due to body habitus and smoking. Low windows and poor apical imaging due to COPD INDICATION Dyspnea RISK FACTORS Hypertension Obesity Hyperlipidemia Smoking 2D DIMENSIONS Left Atrium(2D)3.6 (1.6-4.0cm)IVSd1.0 (0.7-1.1cm) Aortic Root(2D)3.2 (2.0-3.7cm)LVDd4.3 (3.9-5.9cm) LVOT Diameter2.0 (1.8-2.4cm)PWd1.0 (0.7-1.1cm) LVDs2.8 (2.5-4.0cm)FS (%) 34.4 % SV53.8 mlLVEF(%)63.8 (>50%) Aortic Valve AoV Peak Italo.119.8cm/sAoV VTI26.7cm AO Peak GR.5.7mmHgLVOT Peak Italo.87.3cm/s AO Mean GR.3mmHgAVA (VMAX)2.20cm2 Mitral Valve MV E Yeeyntcn40.4cm/sMV E Peak Gr.3mmHg MV DECEL [id number] A Duhdjxxx40.5cm/s MV E Mean Gr.1mmHgE/A Ratio0.8 Pulmonary Valve PV Peak Axbmkyuc559.1cm/s Tricuspid Valve TR P. Cvaozjoy430ua/sTR Peak Gr.22mmHg LEFT VENTRICLE The left ventricle is normal size. There is normal left ventricular wall thickness. The left ventricu lar systolic function is normal. The ejectionn fraction is 60-65%. There is normal LV segmental wall motion. Transmitral Doppler flow pattern is Grade I-abnormal relaxation pattern. No left ventricle th rombus noted on this study. There is no ventricular septal defect visualized. There is no left ventri cular aneurysm. There is no mass noted in the left ventricle. RIGHT VENTRICLE The right ventricle is normal size. There is normal right ventricular wall thickness. The right ventr icular systolic function is normal. ATRIA The left atrium size is normal. The right atrium size is normal. The interatrial septum is intact wit h no evidence for an atrial septal defect or patent foramen ovale as noted on 2-D or Doppler imaging. AORTIC VALVE The aortic valve is mildly sclerotic. Doppler and Color Flow revealed no significant aortic regurgita tion. There is no significant aortic valvular stenosis. There is no aortic valvular vegetation. MITRAL VALVE The mitral valve is normal in structure and function. There is no evidence of mitral valve prolapse. There is no mitral valve stenosis. Doppler and Color-flow revealed trace mitral regurgitation. TRICUSPID VALVE The tricuspid valve is normal in structure and function. Doppler and Color Flow revealed trace tricus pid regurgitation. The PA pressure was estimated at 28 mmHg. There is no tricuspid valve prolapse or vegetation. There is no tricuspid valve stenosis. PULMONIC VALVE Pulmonic valve is not well seen. Doppler and Color Flow revealed no pulmonic valvular regurgitation. There is no pulmonic valvular stenosis. GREAT VESSELS The aortic root is normal in size. The ascending aorta is normal in size. The pulmonary artery is nor mal. The IVC is normal in size and collapses >50% with inspiration. PERICARDIAL EFFUSION There is no pleural effusion. There is no evidence of significant pericardial effusion. Critical Notification Critical Value: No <Conclusion> The left ventricular systolic function is normal. The ejectionn fraction is 60-65%. There is normal LV segmental wall motion. Transmitral Doppler flow pattern is Grade I-abnormal relaxation pattern. Trace mitral regurgitation. Trace tricuspid regurgitation. The PA pressure was estimated at 28 mmHg. There is no evidence of significant pericardial effusion. Signed by : Clark Burkett, Electronically Approved : 12/03/2020 13:19:24
--- NOTE | 2020-12-03 16:58 | RAD ---
MR#: [id number] Date of Study: 12/03/2020 Ordering Physician: VALENTINO RÍOS, Referring Physician: MARC GARZA Tech: RT Poly StewartR) (N) APPROVED REPORT Test Type: Pharmacological Stress Nurse/Tech: Milind Goodrich RN Test Indications: Chest Pain Cardiac History: HTN Medications: See EMR. Medical History: CVA, see EMR. Resting ECG: SR Resting Heart Rate: 70 bpm Resting Blood Pressure: 137/54mmHg Pretest Chest Pain: None Nurse/Tech Notes Lungs CTA, diminshed. On 3L NC. Heart tones diminished, but regular. Consent: The procedure was explained to the patient in lay terms. Informed consent was witnessed. Marcel eout was entered into [employer]. History and Stress Test performed by RT Terry (R) (N) Pharm. Details Pharmacologic stress testing was performed using 0.4mg per 5ml of regadenoson given intravenously ove r 7-10 seconds. Stress Symptoms No chest pain or symptoms. POST EXERCISE Reason for Termination: Infusion complete Max HR: 98 bpm Max Blood Pressure: 152/75mmHg Blood Pressure response to exercise: Normal blood pressure response during stress. Heart Rate response to exercise: WNL Chest Pain: No. Arrhythmia: No. ST Change: No. INTERPRETATION Stress EKG Conclusion: Baseline EKG showed sinus rhythm. No ischemic changes at peak stress. No arr hythmias. Imaging Protocol IMAGE PROTOCOL: Rest Tc-99m/stress Tc-99m 1 day Rest: Stress: Viability: Radiopharm.Tc99m CrjidaoowAm20u Sestamibi Xyld28pJd 32mCi Duration 15min. 15min. Img Date 12/03/2020 12/03/2020 Inj-Img Lpzj54iak. 60min. Rest Admin Site:IV - Left AntecubitalAdministrator:RT Terry (El)(N) Stress Admin Site: IV - Left AntecubitalAdministrator: RT Terry (R)(N) STRESS DATA End Diast. Vol.70.0mlAv. Heart Rate65.0bpm End Syst. Vol.12.0mlCO Index BSA0.0L/min Myocardial Aqmp619.0gEject. Yucbdsqs62.0% Stress Rates Pk. Fill Rate3.28EDV/secLVtime Pk. Fill 274.41msec Pk. Empty Rate4.71ESV/secLVtime Pk. Vxlie876.86msec 1/3 Pk. Fill0.94EDV/sec Stress Scores Regional WT0.00Summed WT0.00 Regional WM0.00Summed WM0.00 Study quality was good. Left Ventricular size was Normal at Rest and Stress. Lung uptake was . Left Ventricular ejection fraction is 79%. The rest and stress images show normal perfusion, normal contraction and thickening. LV Perf. Quant 17 Seg. SSS12.00 17 Seg. SRS9.00 17 Seg. SDS3.00 Stress Defect Extent (% LAD)5.60Rest Defect Extent (% LAD)5.00Rev. Defect Extent (% LAD)0.00 Stress Defect Extent (% LCX) 27.50Rest Defect Extent (% LCX)12.50Rev. Defect Extent (% LCX)0.00 Stress Defect Extent (% RCA)54.40Rest Defect Extent (% RCA)37.80Rev. Defect Extent (% RCA)0.00 Stress Defect Extent (% STEPHY)27.60Rest Defect Extent (% STEPHY)17.00Rev. Defect Extent (% STEPHY)0.00 Conclusion 1. Regadenoson cardioisotope stress test did not show any evidence of ischemia or infarct. 2. Normal left ventricular systolic function with ejection fraction calculated at 79%. 3. Low risk for cardiac events. Signed by : Clark Burkett, Electronically Approved : 12/03/2020 16:58:13
== END ==
LOC: NM 09:12
PROVIDERS: ATTEND Internal Medicine Cardiovascular Disease
DX: I35.1 Nonrheumatic aortic (valve) insufficiency (principal); R06.00 Dyspnea, unspecified
CPT/HCPCS: 78452; 93017; 93306; A9500; J2785

== ENCOUNTER 2021-01-23 22:10 | Emergency (ER) | payer OTHER, MEDICARE ==
[~2021-01-23] VITALS: Ht 157.5 cm; Wt 85.9 kg
[~2021-01-23 22:10] MED LIST changes: -REGADENOSON 0.4 MG/5 ML DISP.SYRIN. IV ONE
--- NOTE | 2021-01-24 00:05 | PHYS DOC ---
Past Medical History Past Medical History: Anxiety, COPD, High Cholesterol, Hypertension Additional Past Medical Histor: HOME O2, POLIO, Past Surgical History: Appendectomy, Cholecystectomy, Hip Replacement, Hysterectomy, Knee Replacement, Tonsillectomy Additional Past Surgical Histo: SHOULDER SURGERY, ADENOIDECTOMY Smoking Status: Former Smoker Alcohol Use: None Drug Use: None General Adult EDM: Chief Complaint: DIARRHEA HPI: HPI: 80-year-old female past medical history of hypertension, hyperlipidemia, hypothyroidism and COPD on 2 L home oxygen, presents the ED with her biological son, (patient consents to his/her/their knowledge and involvement in pts' medical care), with complaints of right upper quadrant and epigastric abdominal pain stating " I do not feel good, I have a lot of arthritis." Patient states approximately 1 month ago she fell hitting her right upper abdomen on a cabinet. At that time had a black and blue bruise but did not seek any medical attention. Past surgical history of cholecystectomy. Reports one episode of vomiting yesterday. States every time she eats she has having loose watery diarrhea-unsure the color, 5x today. Review of Systems: Review of Systems: Constitutional: Denies fever or chills. [] Eyes: Denies change in visual acuity. [] HENT: Denies nasal congestion or sore throat. [] Respiratory: Denies cough or shortness of breath. [] Cardiovascular: Denies chest pain or edema. [] GI: Denies melena or hematochezia : Denies dysuria or hematuria Musculoskeletal: Denies back pain or joint pain. [] Integument: Denies rash or diaphoresis Neurologic: Denies headache, focal weakness or sensory changes. [] Endocrine: Denies polyuria or polydipsia. [] Lymphatic: Denies swollen glands. [] Psychiatric: Denies depression or anxiety. [] Heart Score: C/O Chest Pain: No Risk Factors: Risk Factors: DM, Current or recent (<one month) smoker, HTN, HLP, family history of CAD, obesity. Risk Scores: Score 0 - 3: 2.5% MACE over next 6 weeks - Discharge Home Score 4 - 6: 20.3% MACE over next 6 weeks - Admit for Clinical Observation Score 7 - 10: 72.7% MACE over next 6 weeks - Early Invasive Strategies Current Medications: Current Medications Medications (Trade) Dose Ordered Sig/Carmen Start Time Stop Time Status Last Admin Dose Admin Sodium Chloride 1,000 ml @ 1,000 mls/hr Q1H 01/24/21 00:00 01/24/21 00:59 Allergies: Allergies: Allergies Coded Allergies Type Severity Reaction Last Updated Verified carvedilol Allergy Severe 02/19/13 Yes Penicillins Allergy Intermediate 02/19/13 Yes celecoxib Adverse Reaction Severe 09/01/20 Yes warfarin sodium Adverse Reaction Severe bleeding 09/01/20 Yes Physical Exam: PE: Constitutional: Well developed, well nourished, no acute distress, non-toxic appearance. HENT: Normocephalic, atraumatic, Eyes: EOMI, conjunctiva normal, no discharge. Neck: Normal range of motion, supple, Cardiovascular: S1/2 present, regular rhythm Lungs & Thorax: Speaking in full sentences, bilateral equal chest rise, no tachypnea or increased work of breathing Abdomen: soft, right upper quadrant epigastric tenderness, no cullens sign, no Pope Angelo sign Skin: Warm, dry, no erythema, no rash. [] Back: No tenderness, no CVA tenderness. [] Extremities: No tenderness, no cyanosis, equal lower extremity edema Neurologic: Alert and oriented X 3, normal motor function, normal sensory function, no focal deficits noted. [] Psychologic: Affect normal, judgement normal, mood normal. [] EKG: EKG: [] Radiology/Procedures: Radiology/Procedures: []IMAGING REPORT Signed PATIENT: ELOINA PALENCIA ACCOUNT: [id number] : 1940 LOCATION: ER AGE: 80 SEX: F EXAM STATUS: REG ER ORD. PHYSICIAN: CHRISTINA HADLEY DO REASON: stomach pain PROCEDURE: PORTABLE CHEST 1V XR CHEST 1V Clinical Indication: Reason: stomach pain / Spl. Instructions: / History: Comparison: AP chest August 31, 2020. Findings: Atherosclerotic aortic arch. The cardiomediastinal silhouette is normal. Lungs are clear. There is no pneumothorax. No pleural effusion is appreciated. No acute bone abnormality. There is right shoulder arthroplasty. IMPRESSION: No acute cardiopulmonary process. Electronically signed by: Ian Ceorn MD (01/24/2021 12:30 AM) [facility] DICTATED and SIGNED BY: IAN CERON MD DATE: 01/24/21 [id number] 0 Course & Med Decision Making: Course & Med Decision Making Pertinent Labs and Imaging studies reviewed. (See chart for details) Encounter for right upper and epigastric abdominal pain in the setting of diarrhea. Chart not completed due to EMR downtime. Dragon Disclaimer: Dragon Disclaimer: This electronic medical record was generated, in whole or in part, using a voice recognition dictation system. Departure Departure Referrals: Tian ALEXANDER MD (PCP) CHRISTINA HADLEY DO Jan 24, 2021 00:05
--- NOTE | 2021-01-24 00:32 | RAD ---
XR CHEST 1V Clinical Indication: Reason: stomach pain / Spl. Instructions: / History: Comparison: AP chest August 31, 2020. Findings: Atherosclerotic aortic arch. The cardiomediastinal silhouette is normal. Lungs are clear. There is no pneumothorax. No pleural effusion is appreciated. No acute bone abnormality. There is right shoulder arthroplasty. IMPRESSION: No acute cardiopulmonary process. Electronically signed by: Ian Ceron MD (01/24/2021 12:30 AM) [facility]
[2021-01-24] MEDS: FAMOTIDINE 20 MG/2 ML VIAL IVP ONE (00:52)
[2021-01-24] MEDS: IV NORMAL SALINE 1000ML BAG 1,000 ML IV SCH (00:53)
[2021-01-24] MEDS: METOCLOPRAMIDE HCL 10 MG/2 ML VIAL. IVP ONE (00:53)
[2021-01-24] MEDS ORDERED: CONTRAST GIVEN. MC PRN (01:15)
[2021-01-24] MEDS ORDERED: IOHEXOL 300 MG/ML 100ML VIAL. IV ONE (01:30)
[2021-01-24 03:48] VITALS: BP 150/70
--- NOTE | 2021-01-24 05:58 | RAD ---
Exam: CT abdomen/pelvis with intravenous contrast Indication: Right upper quadrant epigastric pain with diarrhea Comparison: CT abdomen pelvis 03/26/2016 Technique: Helical CT imaging performed of the abdomen and pelvis after the intravenous administratio n of contrast. Sagittal and coronal reformats were obtained. One or more of the following individualized dose reduction techniques were utilized for this examinat ion: 1. Automated exposure control 2. Adjustment of the mA and/or kV according to patient size 3. Use of iterative reconstruction technique. Findings: Lower chest: There are multiple tree-in-bud nodules in the peripheral right middle and lower lobes, w hich may be sequela of aspiration or infection. Heart is normal in size. Liver: The liver is normal in size. No focal liver lesion. Gallbladder/Biliary Tree: The gallbladder is surgically absent. Bile ducts are within normal limits. Pancreas: Normal. Spleen: Normal. Adrenal Glands: Normal. Kidneys/Ureters/Bladder: Kidneys are normal in size and enhance symmetrically. There is a 8 mm hypode nsity in the left kidney, too small characterize. Right nephrolithiasis with a calculus measuring 3 m m. No hydronephrosis. Proximal and mid ureters are normal. Distal ureters and bladder are obscured by artifact from bilateral hip prostheses. Reproductive Organs: Obscured by artifact from hip prostheses. Stomach, small bowel, and colon: The stomach is normal. There is no small bowel obstruction. Surgical changes of appendectomy. There is mild wall thickening and stranding of inflammation from the descen ding colon through rectum. Prominent submucosal fat suggesting chronic inflammation. There is sigmoid diverticulosis. No pneumatosis. Vasculature: Abdominal aorta is normal in caliber. There is severe calcified aortoiliac atheroscleros is. Moderate narrowing of the superior mesenteric artery origin due to calcifications. Lymph Nodes: No lymphadenopathy. Peritoneum and retroperitoneum: No free fluid or free air. Bones: No acute osseous abnormality. There is degenerative disc disease at L3-L4 through L5-S1. Bilat eral total hip prostheses. Miscellaneous: There is a fat-containing lower ventral hernia. IMPRESSION: 1. Colitis from the descending colon through the rectum. 2. Sigmoid diverticulosis. 3. Severe calcified aortoiliac atherosclerosis. Moderate narrowing at the superior mesenteric artery origin due to calcifications. 4. Right nephrolithiasis. 5. Fat-containing ventral hernia. Electronically signed by: Essence Herrera MD (01/24/2021 4:37 AM) [facility]
[2021-01-24 06:06] LABS: ALBUMIN 3.5 g/dL (3.4-5.0); CALCIUM 8.6 mg/dL (8.5-10.1); CREATININE 1.2 mg/dL (0.6-1.0); DIRECT BILIRUBIN 0.2 mg/dL (0.0-0.2); GFR 43.1; MAGNESIUM 1.9 mg/dL (1.8-2.4); POTASSIUM 3.6 mmol/L (3.5-5.1); TOTAL BILIRUBIN 0.5 mg/dL (0.2-1.0); TOTAL PROTEIN 6.6 g/dL (6.4-8.2)
--- NOTE | 2021-01-24 06:39 | EKG ---
[facility] [address] [place] [address] Test Date: 2021-01-24 Test Time: 01:10:04 Pat Name: ELOINA PALENCIA Department: Room: Gender: F Wad Impregnator: : 1940 Requested By: CHRISTINA HADLEY Order Number: [id number] Reading MD: Measurements Intervals [place] Rate: 70 P: 39 HI: 206 QRS: -14 QRSD: 86 T: 70 QT: 388 QTc: 422 Interpretive Statements SINUS RHYTHM LEFTWARD AXIS OTHERWISE NORMAL ECG RI6.01 Compared to ECG 01/24/2021 01:08:21 No significant changes
--- NOTE | 2021-01-24 06:39 | EKG ---
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
[2021-01-24 06:52] LABS: HEMATOCRIT 35.9 % (36.0-47.0); HEMOGLOBIN 11.7 g/dL (12.0-15.5); MEAN CORPUSCULAR HEMOGLOBIN 29 pg (25-35); MEAN CORPUSCULAR HGB CONC 32 g/dL (31-37); MEAN CORPUSCULAR VOLUME 90 fL (79-100); PLATELET COUNT 196 x10^3/uL (140-400); RED BLOOD COUNT 4.01 x10^6/uL (3.50-5.40); RED CELL DISTRIBUTION WIDTH 15.1 % (11.5-14.5); WHITE BLOOD COUNT 6.6 x10^3/uL (4.0-11.0)
[2021-01-24 06:53] LABS: BASO % 0 % (0-3); EOS # 0.3 x10^3/uL (0.0-0.7); EOS % 5 % (0-3); LYMPH # 1.6 x10^3/uL (1.0-4.8); LYMPH % 24 % (24-48); MONO # 0.6 x10^3/uL (0.0-1.1); MONO % 10 % (0-9); NEUT % 61 % (31-73)
== END 2021-01-24 04:25 | disposition home or self-care (01) ==
LOC: ER 22:10
DX: R10.13 Epigastric pain (principal); R10.11 Right upper quadrant pain; R11.10 Vomiting, unspecified; J44.9 Chronic obstructive pulmonary disease, unspecified; E78.00 Pure hypercholesterolemia, unspecified; I10 Essential (primary) hypertension; Z90.89 Acquired absence of other organs; Z90.49 Acquired absence of other specified parts of digestive tract; Z90.710 Acquired absence of both cervix and uterus; Z87.891 Personal history of nicotine dependence; Z88.0 Allergy status to penicillin; Z88.8 Allergy status to other drugs, medicaments and biological substances
CPT/HCPCS: 36415; 71045; 74177; 80048; 80076; 83690; 83735; 83880; 84484; 85025; 93005; 96361; 96374; 96375; 99285; J2765; J3490; J7030

== ENCOUNTER 2021-05-03 15:17 | Inpatient (IN) | payer BC, MEDICARE ==
[~2021-05-03] VITALS: Ht 157.5 cm; Wt 91.5 kg
[~2021-05-03 15:17] MED LIST changes: +TRAM100T10 PO; -TRAM100T2 PO; -TRAM200T3 PO; +[UNRECOGNIZED DRUG - CODE] PO
[2021-05-03] MEDS ORDERED: MORPHINE SULFATE 2 MG/ML INJ. IVP ONE ×2 (15:45→16:45)
[2021-05-03 15:53] LABS: BASO % 0 % (0-3); EOS # 0.1 x10^3/uL (0.0-0.7); EOS % 4 % (0-3); HEMATOCRIT 33.5 % (36.0-47.0); HEMOGLOBIN 10.6 g/dL (12.0-15.5); LYMPH # 0.9 x10^3/uL (1.0-4.8); LYMPH % 27 % (24-48); MEAN CORPUSCULAR HEMOGLOBIN 29 pg (25-35); MEAN CORPUSCULAR HGB CONC 32 g/dL (31-37); MEAN CORPUSCULAR VOLUME 91 fL (79-100); MONO # 0.4 x10^3/uL (0.0-1.1); MONO % 11 % (0-9); NEUT # 1.9 x10^3/uL (1.8-7.7); NEUT % 58 % (31-73); PLATELET COUNT 152 x10^3/uL (140-400); RED BLOOD COUNT 3.68 x10^6/uL (3.50-5.40); RED CELL DISTRIBUTION WIDTH 15.9 % (11.5-14.5); WHITE BLOOD COUNT 3.3 x10^3/uL (4.0-11.0)
[2021-05-03 16:03] LABS: BILIRUBIN,URINE NEGATIVE (NEG); CLARITY,URINE CLEAR; COLOR,URINE YELLOW; NITRITE,URINE NEGATIVE (NEG); PROTEIN,URINE NEGATIVE (NEG-TRACE); UROBILINOGEN,URINE 0.2 mg/dL (0.2 mg/dL)
[2021-05-03 16:05] LABS: BACTERIA,URINE FEW /HPF (0-FEW); HYALINE CASTS, URINE FEW /HPF; RBC,URINE 0 /HPF (0-2)
--- NOTE | 2021-05-03 16:05 | RAD ---
XR CHEST 1V History: Reason: dizzy / Spl. Instructions: / History: Comparison: January 23, 2021 Findings: Mild ill-defined bibasilar opacities. No pleural effusion. No pneumothorax. Unchanged heart size. Vas cular calcifications. Right shoulder arthroplasty. Impression: 1. Mild bibasilar ill-defined opacities, most likely atelectasis. Electronically signed by: Ben Gallegos DO (05/03/2021 4:03 PM) [facility]
[2021-05-03 16:30] LABS: ALBUMIN 2.8 g/dL (3.4-5.0); ALBUMIN/GLOBULIN RATIO 1.1 (1.0-1.7); CALCIUM 7.8 mg/dL (8.5-10.1); CREATININE 1.1 mg/dL (0.6-1.0); GFR 47.7; MAGNESIUM 1.9 mg/dL (1.8-2.4); TOTAL BILIRUBIN 0.4 mg/dL (0.2-1.0); TOTAL PROTEIN 5.4 g/dL (6.4-8.2)
[2021-05-03 16:36] LABS: POTASSIUM 2.7 mmol/L (3.5-5.1)
--- NOTE | 2021-05-03 16:44 | RAD ---
EXAM: CT HEAD WITHOUT IV CONTRAST CLINICAL HISTORY: Reason: dizzy, fall with occipital hematoma / Spl. Instructions: / History: COMPARISON: None. TECHNIQUE: Routine CT of the head without contrast. Soft tissues and bone windows were reviewed. PQRS compliance statement - One or more of the following individualized dose reduction techniques wer e utilized for this study: 1. Automated exposure control 2. Adjustment of the mA and/or kV according to patient size 3. Use of iterative reconstruction technique FINDINGS: There is no evidence of hemorrhage, mass or extra-axial fluid collection. Pope-white differentiation is maintained with no evidence of edema. Subcortical, periventricular as w ell as deep white matter and pontine foci of hypoattenuation likely changes of chronic small vessel d isease. There is no mass effect or shift of the intracranial structures. The ventricles and cerebral sulci are prominent for the patients stated age consistent with generaliz ed cerebral volume loss. The cerebellum and brainstem are unremarkable. The calvarium demonstrates no evidence of fracture or focal lesion. There is normal aeration of the visualized paranasal sinuses and mastoid air cells. The visualized portions of the orbits are normal. IMPRESSION: No evidence for acute intracranial process. White matter changes likely chronic small vessel disease. EXAM: CT CERVICAL SPINE WITHOUT IV CONTRAST CLINICAL HISTORY: Reason: dizzy, fall with occipital hematoma / Spl. Instructions: / History: COMPARISON: None available. TECHNIQUE: Helical CT of the cervical spine was performed. Axial, coronal and sagittal reformatted im ages were also performed. PQRS compliance statement - One or more of the following individualized dose reduction techniques wer e utilized for this study: 1. Automated exposure control 2. Adjustment of the mA and/or kV according to patient size 3. Use of iterative reconstruction technique FINDINGS: Vertebral body heights are preserved. No acute fracture. No spondylolisthesis. Straightening of the normal cervical lordosis. Atlantodental degenerative changes are seen. Mild C4-5, moderate to severe C5-6, C6-7 disc height los s with small anterior posterior disc osteophyte complex. Vascular calcifications are seen. IMPRESSION: 1. No acute cervical spine fracture or subluxation. 2. Multilevel degenerative changes of spine are seen. Electronically signed by: Min Hollins MD (05/03/2021 4:42 PM) [facility]
--- NOTE | 2021-05-03 16:55 | PHYS DOC ---
Past Medical History Past Medical History: Anxiety, COPD, High Cholesterol, Hypertension Additional Past Medical Histor: HOME O2, POLIO Past Surgical History: Other Additional Past Surgical Histo: unable to obtain Smoking Status: Never Smoker Alcohol Use: None Drug Use: None General Adult EDM: Chief Complaint: MECHANICAL FALL HPI: HPI: Patient is a 80 year old female who presents with occipital hematoma status post fall at home. Patient states she was getting up from bed to go to the bathroom, when she became dizzy and lost her balance. She states she typically is able to "catch herself" on her dresser, but she "missed it." Patient son is at bedside and aids in providing history. He states that she has had chronic diarrhea since July 2020. She has been evaluated in the emergency department for this prior. She was given antibiotics and discharged home. The diarrhea is not improved. Patient denies weakness, only states that she is lightheaded when she stands from sitting or lying position. Patient denies any other trauma or injury. She did not lose consciousness, denies bloody diarrhea and has no other complaints at this time. Son reports she is typically alert and oriented x3, to person, place and situation, but rarely time. Patient reports she takes hydrocodone daily for chronic pain. Review of Systems: Review of Systems: Constitutional: Denies fever, chills or generalized weakness Eyes: Denies change in visual acuity, visual field deficits or discharge HENT: Denies ear pain, nasal congestion or sore throat Respiratory: Denies cough or shortness of breath Cardiovascular: Denies chest pain, palpitations or edema GI: See HPI : Denies dysuria or hematuria Musculoskeletal: Denies back pain or joint pain Integument: Denies rash or other skin lesion Neurologic: See HPI Heart Score: C/O Chest Pain: No Current Medications: Current Medications Medications (Trade) Dose Ordered Sig/Carmen Start Time Stop Time Status Last Admin Dose Admin Morphine Sulfate (Morphine Sulfate) 2 mg 1X ONCE 05/03/21 16:45 05/03/21 16:46 Allergies: Allergies: Allergies Coded Allergies Type Severity Reaction Last Updated Verified carvedilol Allergy Severe 05/03/21 Yes Penicillins Allergy Intermediate 05/03/21 Yes celecoxib Adverse Reaction Severe 05/03/21 Yes warfarin sodium Adverse Reaction Severe bleeding 05/03/21 Yes Physical Exam: PE: Constitutional: Well developed, well nourished, no acute distress, non-toxic appearance. HENT: Occipital hematoma appreciated with overlying tenderness, bilateral external ears without deformity/ecchymosis or discharge. Eyes: PERRL, EOMI, conjunctiva normal, no discharge. Neck: Normal range of motion, no tenderness, no stridor. Skin: Warm, dry, no erythema, no rash. Back: No step-off, no tenderness, no CVA tenderness. Extremities: No tenderness, no cyanosis, no clubbing, ROM intact, no edema. Neurologic: Alert and oriented to person only, no focal deficits noted. Current Patient Data: Labs: Laboratory Tests Test 05/03/21 15:46 05/03/21 15:48 Urine Collection Type Unknown Urine Color Yellow Urine Clarity Clear Urine pH 6.0 (<5.0-8.0) Urine Specific [place] <=1.005 (1.000-1.030) Urine Protein Negative mg/dL (NEG-TRACE) Urine Glucose (UA) Negative mg/dL (NEG) Urine Ketones (Stick) Negative mg/dL (NEG) Urine Blood Trace (NEG) Urine Nitrite Negative (NEG) Urine Bilirubin Negative (NEG) Urine Urobilinogen Dipstick 0.2 mg/dL (0.2 mg/dL) Urine Leukocyte Esterase Trace (NEG) Urine RBC 0 /HPF (0-2) Urine WBC 1-4 /HPF (0-4) Urine Squamous Epithelial Cells Mod /LPF Urine Bacteria Few /HPF (0-FEW) Urine Hyaline Casts Few /HPF White Blood Count 3.3 x10^3/uL (4.0-11.0) L Red Blood Count 3.68 x10^6/uL (3.50-5.40) Hemoglobin 10.6 g/dL (12.0-15.5) L Hematocrit 33.5 % (36.0-47.0) L Mean Corpuscular Volume 91 fL (79-100) Mean Corpuscular Hemoglobin 29 pg (25-35) Mean Corpuscular Hemoglobin Concent 32 g/dL (31-37) Red Cell Distribution Width 15.9 % (11.5-14.5) H Platelet Count 152 x10^3/uL (140-400) Neutrophils (%) (Auto) 58 % (31-73) Lymphocytes (%) (Auto) 27 % (24-48) Monocytes (%) (Auto) 11 % (0-9) H Eosinophils (%) (Auto) 4 % (0-3) H Basophils (%) (Auto) 0 % (0-3) Neutrophils # (Auto) 1.9 x10^3/uL (1.8-7.7) Lymphocytes # (Auto) 0.9 x10^3/uL (1.0-4.8) L Monocytes # (Auto) 0.4 x10^3/uL (0.0-1.1) Eosinophils # (Auto) 0.1 x10^3/uL (0.0-0.7) Basophils # (Auto) 0.0 x10^3/uL (0.0-0.2) Laboratory Tests 05/03/21 15:48 Vital Signs: Vital Signs Date Time Temp Pulse Resp B/P (MAP) Pulse Ox O2 Delivery O2 Flow Rate FiO2 05/03/21 17:55 67 16 122/74 (90) 97 Nasal Cannula 4.0 05/03/21 17:49 Room Air 05/03/21 15:45 Room Air 05/03/21 15:32 98.5 64 15 128/63 (84) 98 Nasal Cannula 2.0 98.5 EKG: EKG: EKG Interpreted by Dr. Cutler at 1530: Regular rate and rhythm 64 bpm with no ectopic beats. QT 454 ms/QTc 473 ms. No STEMI. Low voltage EKG. Radiology/Procedures: Radiology/Procedures: EXAM: CT HEAD WITHOUT IV CONTRAST CLINICAL HISTORY: Reason: dizzy, fall with occipital hematoma / Spl. Ins tructions: / History: COMPARISON: None. TECHNIQUE: Routine CT of the head without contrast. Soft tissues and bone windows were reviewed. PQRS compliance statement - One or more of the following individualized dose reduction techniques were utilized for this study: 1. Automated exposure control 2. Adjustment of the mA and/or kV according to patient size 3. Use of iterative reconstruction technique FINDINGS: There is no evidence of hemorrhage, mass or extra-axial fluid collection. Pope-white differentiation is maintained with no evidence of edema. Subcortical, periventricular as well as deep white matter and pontine foci of hypoattenuation likely changes of chronic small vessel disease. There is no mass effect or shift of the intracranial structures. The ventricles and cerebral sulci are prominent for the patients stated age consistent with generalized cerebral volume loss. The cerebellum and brainstem are unremarkable. The calvarium demonstrates no evidence of fracture or focal lesion. There is normal aeration of the visualized paranasal sinuses and mastoid air cells. The visualized portions of the orbits are normal. IMPRESSION: No evidence for acute intracranial process. White matter changes likely chronic small vessel disease. EXAM: CT CERVICAL SPINE WITHOUT IV CONTRAST CLINICAL HISTORY: Reason: dizzy, fall with occipital hematoma / Spl. Instructions: / History: COMPARISON: None available. TECHNIQUE: Helical CT of the cervical spine was performed. Axial, coronal and sagittal reformatted images were also performed. PQRS compliance statement - One or more of the following individualized dose reduction techniques were utilized for this study: 1. Automated exposure control 2. Adjustment of the mA and/or kV according to patient size 3. Use of iterative reconstruction technique FINDINGS: Vertebral body heights are preserved. No acute fracture. No spondylolisthesis. Straightening of the normal cervical lordosis. Atlantodental degenerative changes are seen. Mild C4-5, moderate to severe C5-6, C6-7 disc height loss with small anterior posterior disc osteophyte complex. Vascular calcifications are seen. IMPRESSION: 1. No acute cervical spine fracture or subluxation. 2. Multilevel degenerative changes of spine are seen. Electronically signed by: Min Hollins MD (05/03/2021 4:42 PM) [facility] PROC[facility]: CHEST AP ONLY XR CHEST 1V History: Reason: dizzy / Spl. Instructions: / History: Comparison: January 23, 2021 Findings: Mild ill-defined bibasilar opacities. No pleural effusion. No pneumothorax. Unchanged heart size. Vascular calcifications. Right shoulder arthroplasty. Impression: 1. Mild bibasilar ill-defined opacities, most likely atelectasis. Electronically signed by: Ben Gallegos DO (05/03/2021 4:03 PM) [facility] Course & Med Decision Making: Course & Med Decision Making Pertinent Labs and Imaging studies reviewed. (See chart for details) Patient is an 80-year-old female who presents to the emergency department after a fall at home. She reports she has pain and occipital hematoma. Patient son at bedside states that she has had diarrhea since July of last year. Work-up today will include head and C-spine CT plain, labs, urinalysis and stool samples. Patient's potassium found to be critically low at 2.7. Dr. Walter, hospitalist, gladly accepts patient for admission. IV potassium replacement initiated here in the emergency department. Patient has no advanced directive on file, however patient's son wishes to discuss this with her during her admission. Patient hemodynamically stable upon transportation to hospital floor. Dragon Disclaimer: Thang Disclaimer: This electronic medical record was generated, in whole or in part, using a voice recognition dictation system. Departure Departure Impression: Primary Impression: Hypokalemia due to excessive gastrointestinal loss of potassium Additional Impression: Fall at home Qualified Codes: W19.XXXA - Unspecified fall, initial encounter; Y92.009 - Unspecified place in unspecified non-institutional (private) residence as the place of occurrence of the external cause Disposition: ADMITTED INPATIENT Admitting Physician: HUDSON Condition: GUARDED Referrals: LUANN JIMENEZ MD (PCP) JOSE GEORGE May 03, 2021 16:55
[2021-05-03] MEDS ORDERED: MORPHINE SULFATE 2 MG/ML INJ. IVP PRN (17:15)
--- NOTE | 2021-05-03 17:29 | EKG ---
[facility] [address] [place] [address] Test Date: 2021-05-03 Test Time: 15:25:53 Pat Name: ELOINA PALENCIA Department: Room: Gender: F Edger Machine Helper: : [id number] Requested By: JOSE GEORGE Order Number: [id number] Reading MD: Clark Burkett Measurements Intervals [place] Rate: 64 P: DC: QRS: -27 QRSD: 96 T: 19 QT: 454 QTc: 473 Interpretive Statements SINUS RHYTHM LEFTWARD AXIS Electronically Signed On 05-04-2021 18:36:02 [employer] INDUSTRIAL [employer]PERVISOR by Clark Burkett
[2021-05-03] MEDS: IV NORMAL SALINE 1000ML BAG 1,000 ML IV SCH (17:30)
[2021-05-03] MEDS: cefTRIAXone IV Push 1 GM VIAL. IVP SCH (17:50)
[2021-05-03] MEDS: POTASSIUM CHLORIDE 20MEQ 100 ML IV SCH ×2 (17:50→19:51)
--- NOTE | 2021-05-03 17:56 | HP ---
DATE OF SERVICE: 05/03/2021 ADMIT DATE: 05/03/2021 CHIEF COMPLAINT: Falls, dizziness, diarrhea. HISTORY OF PRESENT ILLNESS: The patient is a pleasant elderly female who fell today. She got dizzy. She tried to grab a dresser, but still fell. She has been having some loose stools since July. We checked her labs. She got hypokalemia. Here, I discussed the case with the ER physician. We are going to admit the patient and probably get her to shelter eventually. PAST MEDICAL HISTORY: COPD, anxiety, hypertension, hyperlipidemia, depression, she is on home oxygen, history of polio. ALLERGIES: PENICILLIN, CARVEDILOL, CELEBREX, COUMADIN. FAMILY HISTORY: Diabetes. SOCIAL HISTORY: She never smoked. No drink or drugs. MEDICATIONS: Reviewed, please refer to the MRAD. REVIEW OF SYSTEMS: GENERAL: She complains of weakness. SKIN: No bruising, hair changes or rashes. EYES: No blurred, double or loss of vision. NOSE AND THROAT: No history of nosebleeds, hoarseness or sore throat. HEART: No history of palpitations, chest pain or shortness of breath on exertion. LUNGS: Denies cough, hemoptysis, wheezing or shortness of breath. GASTROINTESTINAL: Denies changes in appetite, nausea, vomiting, diarrhea or constipation. GENITOURINARY: No history of frequency, urgency, hesitancy or nocturia. NEUROLOGIC: She complains of weakness. PSYCHIATRIC: She complains of depression. ENDOCRINE: No history of heat or cold intolerance, polyuria or polydipsia. EXTREMITIES: Denies muscle weakness, joint pain, pain on walking or stiffness. LABORATORY DATA: White count is 3.3, hemoglobin 10.6, platelets 152. Electrolytes, sodium is 144, potassium 2.7, chloride 104, bicarbonate 33, BUN 19, creatinine 1.1, glucose 114. Urinalysis, trace leukocyte esterase with 1-4 white cells. Chest x-ray, atelectasis. CT of the head, chronic white matter changes. ASSESSMENT AND PLAN: Falls, diarrhea, weakness, hypokalemia, debility. The patient has been admitted. We will give her IV fluids, replace her potassium. Consult GI regarding the diarrhea. Home meds. Deep venous thrombosis prophylaxis. Full code. PT, OT. creative services coordinator consult for long-term care placement. NKC/NIS DR: BRENNON/arcenio TID: [id number]
[2021-05-03 19:00] VITALS: BP 112/57
--- NOTE | 2021-05-03 20:00 | NUR ---
Patient, ELOINA PALENCIA, age 80, arrived to unit rm 506, prior to this nurse getting here (approx 1840 per report), in assessing her history, she is forgetful, and occasional tearing, unable to tell me her date, but eventually does get the date right. Does report a stroke history approx 4-5 years ago, and has trouble remembering things. In obtaining her history, she denies any thyroid problems, then says she is on thyroid medication when reconciling her meds. In asking her where her preferred pharmacy is, she says [facility], 'but my son gets them for me" she thinks is in [place] where she thinks. monitoring this patient.
[2021-05-03] MEDS ORDERED: C.DIFF MED SCREEN BY RX. MC PRN (20:30)
[2021-05-03] MEDS ORDERED: ALBUTEROL SULFATE 2.5 MG/3 ML NEBU. NEB PRN (21:15)
[2021-05-03 23:02] VITALS: BP 120/60
[2021-05-03] MEDS: clonazePAM 0.5 MG TABLET PO SCH (23:03)
[2021-05-03] MEDS: GABAPENTIN 300 MG CAPSULE. PO SCH (23:04)
[2021-05-03] MEDS: ATORVASTATIN CALCIUM 40 MG TABLET. PO SCH (23:05)
[2021-05-04] MEDS ORDERED: HYDROcodone/APAP 5/325MG 1 TAB TABLET PO SCH
[2021-05-04] MEDS: ALPRAZolam 0.25 MG TABLET PO PRN (01:14)
[2021-05-04 03:06] VITALS: BP 111/51
[2021-05-04] MEDS: IV NORMAL SALINE 1000ML BAG 1,000 ML IV SCH (05:41)
[2021-05-04] MEDS: LEVOTHYROXINE 50 MCG TABLET PO SCH (05:41)
[2021-05-04 07:00] VITALS: BP 115/52
[2021-05-04] MEDS: BUDESONIDE 0.5 MG/2 ML NEBU. NEB SCH ×2 (07:53→19:43)
[2021-05-04] MEDS: ALBUTEROL SULFATE 2.5 MG/3 ML NEBU. NEB SCH ×4 (07:53→19:43)
[2021-05-04] MEDS: LISINOPRIL 20 MG TABLET PO SCH (10:00)
[2021-05-04] MEDS: GABAPENTIN 300 MG CAPSULE. PO SCH ×2 (10:01→20:47)
[2021-05-04] MEDS: FUROSEMIDE 20 MG TABLET PO SCH (10:01)
[2021-05-04] MEDS: ASPIRIN ENTERIC COATED 81 MG TABLET.DR. PO SCH (10:02)
[2021-05-04] MEDS: HYDROcodone/APAP 5/325MG 1 TAB TABLET PO PRN ×2 (10:08→16:27)
[2021-05-04 11:03] VITALS: BP 134/59
--- NOTE | 2021-05-04 14:11 | NUR ---
Pharmacy Medication Review S: Consulted for medication review re: C.diff Risk Assessment score of 4 O: ELOINA PALENCIA is a 80 year old with: Previous C.diff infection: No Previous hospitalization: No Recent antibiotics: Within 30 days Use of gastric acid suppressor: No Transfer from [facility]: Yes Current antibiotic regimen: ROCEPHIN Current acid suppression regimen: NONE A: Patient has been identified as having risk factors for C.diff infection as noted above. P: Antibiotic Regimen recommendation made: N/A Probiotic ordered: YES PPI changed to [id number]: N/A KUSHAL HERNANDEZ [facility], 05/04/21 [id number]
[2021-05-04 14:42] VITALS: BP 128/62
--- NOTE | 2021-05-04 14:48 | PDOC2 ---
CONSULT Date of Consult Date of Consult DATE: 05/04/21 TIME: 14:39 Reason for Consult Reason for Consult: Chronic diarrhea, hypokalemia History of Present Illness Reason for Visit: This is a pleasant 80-year-old female who presents with about an 8-month history of chronic diarrhea. She describes it some days her stools are more formed but the majority of days they are loose and sometimes will have up to 5-10 loose bowel movements a day. There is no obvious pattern. No obvious inciting event last year such as a Covid infection, other viral infection, change in medications or antibiotic exposure. She came to the emergency room after a fall back in January and had diarrhea at that time but her laboratories were relatively normal and so no further evaluation was done. 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 She says her last colonoscopy was ages ago probably more than 10 to 15 years. She had one episode of vomiting but generally denies nausea vomiting or upper dyspeptic complaints but does have lower abdominal cramping just before the bowel movement and then after the diarrhea her symptoms improved. She also describes bright red blood on some of her stools but does describe a history of hemorrhoids. She has a mild anemia presently at hemoglobin 10.6 and had a hemoglobin 11.7 in January of last year. Past Medical History Cardiovascular: CHF Pulmonary: COPD Musculoskeletal: Osteoarthritis Past Surgical History Past Surgical History: Appendectomy (Joint replacement surgery), Cholecystectomy Family History Family History: Coronary Artery Disease, Hypertension Social History ALCOHOL: none Drugs: None Current Problem List Problem List Problems Medical Problems: (1) Fall at home Status: Acute (2) Hypokalemia due to excessive gastrointestinal loss of potassium Status: Acute Current Medications Current Medications Current Medications Morphine Sulfate (Morphine Sulfate) 2 mg 1X ONCE IVP ; Start 05/03/21 at 15:45; Stop 05/03/21 at 15:46; Status DC Morphine Sulfate (Morphine Sulfate) 2 mg 1X ONCE IVP Last administered on 05/03/21at 17:49; Start 05/03/21 at 16:45; Stop 05/03/21 at 16:46; Status DC Potassium Chloride/Water 100 ml @ 50 mls/hr Q2H IV Last administered on 05/03/21at 19:51; Start 05/03/21 at 17:00; Stop 05/03/21 at 20:59; Status DC Morphine Sulfate (Morphine Sulfate) 2 mg PRN Q2HR PRN IVP PAIN; Start 05/03/21 at 17:15; Stop 05/04/21 at 17:14 Sodium Chloride 1,000 ml @ 75 mls/hr [id number] IV Last administered on 05/04/21at 05:41; Start 05/03/21 at 17:30 Ceftriaxone Sodium (Rocephin) 1 gm Q24H IVP Last administered on 05/03/21at 17:50; Start 05/03/21 at 18:00 Pharmacy Consult (C.diff Med Screen By Rx) 1 each 1X PRN MC PER PROTOCOL; Start 05/03/21 at 20:30; Status Cancel Albuterol Sulfate (Ventolin Neb Soln) 2.5 mg PRN Q4HRS PRN NEB SHORTNESS OF BREATH; Start 05/03/21 at 21:15 Alprazolam (Xanax) 0.25 mg PRN TID PRN PO ANXIETY / AGITATION Last administered on 05/04/21at 01:14; Start 05/03/21 at 21:15 Amlodipine Besylate (Norvasc) 10 mg HS PO Last administered on 05/03/21at 23:05; Start 05/03/21 at 22:00 Aspirin (Ecotrin) 81 mg [id number] PO Last administered on 05/04/21at 10:02; Start 05/04/21 at 08:00 Atorvastatin Calcium (Lipitor) 40 mg QHS PO Last administered on 05/03/21at 23:05; Start 05/03/21 at 22:00 Furosemide (Lasix) 40 mg DAILY PO Last administered on 05/04/21 10:01; Start 05/04/21 at 09:00 Gabapentin (Neurontin) 600 mg BID PO Last administered on 05/04/21 10:01; Start 05/03/21 at 22:00 Acetaminophen/ Hydrocodone Bitart (Lortab 5/325) 1 tab Q6HRS PO Last administered on 05/03/21at 23:04; Start 05/04/21 at 00:00; Stop 05/03/21 at 23:51; Status DC Levothyroxine Sodium (Synthroid) 50 mcg DAILY06 PO Last administered on 05/04/21at 05:41; Start 05/04/21 at 06:00 Lisinopril (Prinivil) 20 mg DAILY PO Last administered on 05/04/21at 10:00; Start 05/04/21 at 09:00 Clonazepam (KlonoPIN) 1 mg QHS PO Last administered on 05/03/21at 23:03; Start 05/03/21 at 22:00 Budesonide (Pulmicort) 0.5 mg RTBID NEB Last administered on 05/04/21at 07:53; Start 05/04/21 at 08:00 Albuterol Sulfate (Ventolin Neb Soln) 2.5 mg RTQID NEB Last administered on 05/04/21at 11:55; Start 05/04/21 at 08:00 Acetaminophen/ Hydrocodone Bitart (Lortab 5/325) 1 tab PRN Q6HRS PRN PO MODERATE PAIN 4-6 Last administered on 05/04/21at 10:08; Start 05/04/21 at 00:00 Lactobacillus Rhamnosus (Culturelle) 1 cap BID PO ; Start 05/04/21 at 21:00 Heparin Sodium (Porcine) (Heparin Sodium) 5,000 unit Q12HR SQ ; Start 05/04/21 at 21:00 Active Scripts Active Aspirin Ec (Aspirin) 81 Mg Tablet.dr 81 Mg PO DAILYWBKFT 60 Days Lorcet 5-325 mg Tablet (Hydrocodone/Acetaminophen) 1 Each Tablet 1 Each PO Q6HRS Lisinopril 20 Mg Tablet 20 Mg PO DAILY [Toprol Xl] Albuterol Sulfate Neb Soln (Albuterol Sulfate) 2.5 Mg/3 Ml Vial.neb 1 Vial NEB PRN Q4HRS Advair 250-50 Diskus (Fluticasone/Salmeterol) 1 Each Disk.w.dev 1 Puff IH BID Synthroid (Levothyroxine Sodium) 50 Mcg Tablet 1 Tab PO DAILY Lipitor (Atorvastatin Calcium) 40 Mg Tablet 40 Mg PO QHS Reported Clonazepam 1 Mg Tablet 1 Tab PO QHS Xanax (Alprazolam) 0.25 Mg Tablet 0.25 Mg PO PRN TID Amlodipine Besylate 5 Mg Tablet 10 Mg PO HS Furosemide 20 Mg Tablet 40 Mg PO DAILY Gabapentin (Gabapentin) 100 Mg Capsule 600 Mg PO QID Allergies Allergies: Coded Allergies: carvedilol (Verified Allergy, Severe, 05/03/21) causes SOB Penicillins (Verified Allergy, Intermediate, 05/03/21) celecoxib (Verified Adverse Reaction, Severe, 05/03/21) VOMITS BLOOD warfarin sodium (Verified Adverse Reaction, Severe, bleeding, 05/03/21) Physical Exam General: Alert, Oriented X3, Cooperative HEENT: Other (Describes a "knot on her head" from her recent fall but no syncope) Lungs: Clear to auscultation Heart: Regular rate, Normal S1, Normal S2 Abdomen: Normal bowel sounds, Soft, No tenderness, No hepatosplenomegaly, No masses Extremities: No clubbing Skin: No rashes Neuro: Normal speech Vitals VITALS Vital Signs Date Time Temp Pulse Resp B/P (MAP) Pulse Ox O2 Delivery O2 Flow Rate FiO2 05/04/21 11:56 99 3.0 05/04/21 11:03 97.8 78 18 134/59 (84) Nasal Cannula 97.8 Labs Labs Laboratory Tests Test 05/03/21 15:46 05/03/21 15:48 Urine Collection Type Unknown Urine Color Yellow Urine Clarity Clear Urine pH 6.0 (<5.0-8.0) Urine Specific [place] <=1.005 (1.000-1.030) Urine Protein Negative mg/dL (NEG-TRACE) Urine Glucose (UA) Negative mg/dL (NEG) Urine Ketones (Stick) Negative mg/dL (NEG) Urine Blood Trace (NEG) Urine Nitrite Negative (NEG) Urine Bilirubin Negative (NEG) Urine Urobilinogen Dipstick 0.2 mg/dL (0.2 mg/dL) Urine Leukocyte Esterase Trace (NEG) Urine RBC 0 /HPF (0-2) Urine WBC 1-4 /HPF (0-4) Urine Squamous Epithelial Cells Mod /LPF Urine Bacteria Few /HPF (0-FEW) Urine Hyaline Casts Few /HPF White Blood Count 3.3 x10^3/uL (4.0-11.0) Red Blood Count 3.68 x10^6/uL (3.50-5.40) Hemoglobin 10.6 g/dL (12.0-15.5) Hematocrit 33.5 % (36.0-47.0) Mean Corpuscular Volume 91 fL (79-100) Mean Corpuscular Hemoglobin 29 pg (25-35) Mean Corpuscular Hemoglobin Concent 32 g/dL (31-37) Red Cell Distribution Width 15.9 % (11.5-14.5) Platelet Count 152 x10^3/uL (140-400) Neutrophils (%) (Auto) 58 % (31-73) Lymphocytes (%) (Auto) 27 % (24-48) Monocytes (%) (Auto) 11 % (0-9) Eosinophils (%) (Auto) 4 % (0-3) Basophils (%) (Auto) 0 % (0-3) Neutrophils # (Auto) 1.9 x10^3/uL (1.8-7.7) Lymphocytes # (Auto) 0.9 x10^3/uL (1.0-4.8) Monocytes # (Auto) 0.4 x10^3/uL (0.0-1.1) Eosinophils # (Auto) 0.1 x10^3/uL (0.0-0.7) Basophils # (Auto) 0.0 x10^3/uL (0.0-0.2) Sodium Level 144 mmol/L (136-145) Potassium Level 2.7 mmol/L (3.5-5.1) Chloride Level 104 mmol/L (98-107) Carbon Dioxide Level 33 mmol/L (21-32) Anion Gap 7 (6-14) Blood Urea Nitrogen 19 mg/dL (7-20) Creatinine 1.1 mg/dL (0.6-1.0) Estimated GFR (Cockcroft-Gault) 47.7 BUN/Creatinine Ratio 17 (6-20) Glucose Level 114 mg/dL (70-99) Calcium Level 7.8 mg/dL (8.5-10.1) Magnesium Level 1.9 mg/dL (1.8-2.4) Total Bilirubin 0.4 mg/dL (0.2-1.0) Aspartate Amino Transf (AST/SGOT) 24 U/L (15-37) Alanine Aminotransferase (ALT/SGPT) 16 U/L (14-59) Alkaline Phosphatase 83 U/L (46-116) Troponin I High Sensitivity 13 ng/L (4-50) Total Protein 5.4 g/dL (6.4-8.2) Albumin 2.8 g/dL (3.4-5.0) Albumin/Globulin Ratio 1.1 (1.0-1.7) Lipase 60 U/L (73-393) Laboratory Tests Test 05/03/21 15:46 05/03/21 15:48 Urine Collection Type Unknown Urine Color Yellow Urine Clarity Clear Urine pH 6.0 (<5.0-8.0) Urine Specific [place] <=1.005 (1.000-1.030) Urine Protein Negative mg/dL (NEG-TRACE) Urine Glucose (UA) Negative mg/dL (NEG) Urine Ketones (Stick) Negative mg/dL (NEG) Urine Blood Trace (NEG) Urine Nitrite Negative (NEG) Urine Bilirubin Negative (NEG) Urine Urobilinogen Dipstick 0.2 mg/dL (0.2 mg/dL) Urine Leukocyte Esterase Trace (NEG) Urine RBC 0 /HPF (0-2) Urine WBC 1-4 /HPF (0-4) Urine Squamous Epithelial Cells Mod /LPF Urine Bacteria Few /HPF (0-FEW) Urine Hyaline Casts Few /HPF White Blood Count 3.3 x10^3/uL (4.0-11.0) Red Blood Count 3.68 x10^6/uL (3.50-5.40) Hemoglobin 10.6 g/dL (12.0-15.5) Hematocrit 33.5 % (36.0-47.0) Mean Corpuscular Volume 91 fL (79-100) Mean Corpuscular Hemoglobin 29 pg (25-35) Mean Corpuscular Hemoglobin Concent 32 g/dL (31-37) Red Cell Distribution Width 15.9 % (11.5-14.5) Platelet Count 152 x10^3/uL (140-400) Neutrophils (%) (Auto) 58 % (31-73) Lymphocytes (%) (Auto) 27 % (24-48) Monocytes (%) (Auto) 11 % (0-9) Eosinophils (%) (Auto) 4 % (0-3) Basophils (%) (Auto) 0 % (0-3) Neutrophils # (Auto) 1.9 x10^3/uL (1.8-7.7) Lymphocytes # (Auto) 0.9 x10^3/uL (1.0-4.8) Monocytes # (Auto) 0.4 x10^3/uL (0.0-1.1) Eosinophils # (Auto) 0.1 x10^3/uL (0.0-0.7) Basophils # (Auto) 0.0 x10^3/uL (0.0-0.2) Sodium Level 144 mmol/L (136-145) Potassium Level 2.7 mmol/L (3.5-5.1) Chloride Level 104 mmol/L (98-107) Carbon Dioxide Level 33 mmol/L (21-32) Anion Gap 7 (6-14) Blood Urea Nitrogen 19 mg/dL (7-20) Creatinine 1.1 mg/dL (0.6-1.0) Estimated GFR (Cockcroft-Gault) 47.7 BUN/Creatinine Ratio 17 (6-20) Glucose Level 114 mg/dL (70-99) Calcium Level 7.8 mg/dL (8.5-10.1) Magnesium Level 1.9 mg/dL (1.8-2.4) Total Bilirubin 0.4 mg/dL (0.2-1.0) Aspartate Amino Transf (AST/SGOT) 24 U/L (15-37) Alanine Aminotransferase (ALT/SGPT) 16 U/L (14-59) Alkaline Phosphatase 83 U/L (46-116) Troponin I High Sensitivity 13 ng/L (4-50) Total Protein 5.4 g/dL (6.4-8.2) Albumin 2.8 g/dL (3.4-5.0) Albumin/Globulin Ratio 1.1 (1.0-1.7) Lipase 60 U/L (73-393) Assessment/Plan Assessment/Plan Chronic diarrhea. This has been going on for about 8 months. No work-up so far. It seems to wax and wane but more recently has worsened to the point where she is developing weakness and now profound hypokalemia. She has fallen at home on several occasions probably related to the weakness. No obvious trigger for her diarrhea last year but she does have a history of cholecystectomy in the distant past which may be a contributing feature. The possibility of chronic colitis, occult infection etc. must be considered although an acute infection seems less likely with the chronicity of her symptoms. However stool studies would be appropriate. Also a colonoscopy would be appropriate but since she is seeing [facility] next week if she stabilizes this may be deferred until we have a chance to see her. Mild anemia. She had hemoglobin 11.7 in January, now 10.6. She does describe some blood with her stools but she is relates this to hemorrhoids. We must consider the possibility of colitis or an occult malignancy as a source as well. Elective colonoscopy is warranted. However she has an appointment with [facility] next week. Unless her condition does not allow discharge, we will defer to them on the elective colonoscopy issue. Plan: We will check stool studies for pathogens but also for inflammation. Monitor labs. Colonoscopy is warranted however she does have an appointment next week with [facility] so she is able to keep that appointment and not remain in the hospital, we will likely defer to them on this issue. TAMRA SCHILLING MD May 04, 2021 14:48
[2021-05-04] MEDS: cefTRIAXone IV Push 1 GM VIAL. IVP SCH (19:15)
[2021-05-04 19:25] VITALS: BP 125/68
[2021-05-04] MEDS: ATORVASTATIN CALCIUM 40 MG TABLET. PO SCH (20:47)
[2021-05-04] MEDS: LACTOBACILLUS RHAMNOSUS GG 1 CAPSULE. PO SCH (20:47)
[2021-05-04] MEDS: clonazePAM 0.5 MG TABLET PO SCH (20:52)
[2021-05-04] MEDS: HEPARIN for SUB-Q USE 5,000 UNIT/ML VIAL. SQ SCH (20:53)
[2021-05-04 23:00] VITALS: BP 120/60
[2021-05-05 03:00] VITALS: BP 141/63
[2021-05-05] MEDS: IV NORMAL SALINE 1000ML BAG 1,000 ML IV SCH ×2 (03:33→09:30)
[2021-05-05] MEDS: HYDROcodone/APAP 5/325MG 1 TAB TABLET PO PRN ×5 (04:27→21:18)
[2021-05-05] MEDS: ALPRAZolam 0.25 MG TABLET PO PRN ×2 (04:27→12:34)
[2021-05-05 07:00] VITALS: BP 111/60
[2021-05-05] MEDS: BUDESONIDE 0.5 MG/2 ML NEBU. NEB SCH ×2 (07:14→20:40)
[2021-05-05] MEDS: ALBUTEROL SULFATE 2.5 MG/3 ML NEBU. NEB SCH ×4 (07:15→20:40)
[2021-05-05] MEDS: LEVOTHYROXINE 50 MCG TABLET PO SCH (08:45)
[2021-05-05] MEDS: LISINOPRIL 20 MG TABLET PO SCH (08:45)
[2021-05-05] MEDS: LACTOBACILLUS RHAMNOSUS GG 1 CAPSULE. PO SCH ×2 (08:45→21:05)
[2021-05-05] MEDS: ASPIRIN ENTERIC COATED 81 MG TABLET.DR. PO SCH (08:45)
[2021-05-05] MEDS: GABAPENTIN 300 MG CAPSULE. PO SCH ×2 (08:45→21:05)
[2021-05-05] MEDS: FUROSEMIDE 20 MG TABLET PO SCH (08:46)
[2021-05-05] MEDS: HEPARIN for SUB-Q USE 5,000 UNIT/ML VIAL. SQ SCH ×2 (08:49→21:08)
[2021-05-05 11:00] VITALS: BP 114/81
[2021-05-05] MEDS ORDERED: POTASSIUM CHLORIDE 20 MEQ TABLET.ER. PO ONE (13:30)
--- NOTE | 2021-05-05 13:50 | PDOC ---
GI PROGRESS NOTES Date of Service: Date/Time DATE: 05/05/21 TIME: 13:49 Subjective Subjective Somnolent but arousable. Only 2 bowel movements over the last 24 hours. Stool studies some are pending others were not able to be sent. Objective Vitals Vital Signs Date Time Temp Pulse Resp B/P (MAP) Pulse Ox O2 Delivery O2 Flow Rate FiO2 05/05/21 12:21 96 Nasal Cannula 3.0 05/05/21 12:01 96 Nasal Cannula 3.0 05/05/21 11:00 98.1 112 20 114/81 (92) 96 Nasal Cannula 3.0 98.1 05/05/21 10:37 100 Nasal Cannula 3.0 05/05/21 08:45 110 111/60 05/05/21 08:00 Nasal Cannula 3.0 05/05/21 07:24 100 Nasal Cannula 3.0 05/05/21 07:21 100 Nasal Cannula 3.0 05/05/21 07:00 97.9 110 20 111/60 (77) 97 Nasal Cannula 3.0 97.9 05/05/21 03:00 98.4 113 20 141/63 (89) 97 Nasal Cannula 3.0 98.4 05/04/21 23:00 98.3 91 16 120/60 (80) 98 Nasal Cannula 3.0 98.3 05/04/21 20:47 72 128/62 05/04/21 19:43 Nasal Cannula 3.0 05/04/21 19:25 Nasal Cannula 3.0 05/04/21 19:25 98.8 70 21 125/68 (87) 97 Nasal Cannula 3.0 98.8 05/04/21 17:15 100 Nasal Cannula 3.0 05/04/21 16:27 100 Nasal Cannula 3.0 05/04/21 16:24 100 Nasal Cannula 3.0 05/04/21 15:40 100 Nasal Cannula 3.0 05/04/21 14:42 98.0 72 20 128/62 (84) 97 Nasal Cannula 98.0 Physical Exam Physical Exam Somnolent but arousable Chest clear Heart regular rate and rhythm Abdomen soft, nontender, normal bowel Assessment Assessment Chronic diarrhea. Awaiting stool studies to help guide us in terms of possible causes. Hypokalemia. Correcting with IV supplement. Likely related to chronic diarrhea. Plan Plan Await stool studies Continue to monitor Justicifation of Admission Dx: Justifications for Admission: Justification of Admission Dx: Comment: TAMRA SCHILLING MD May 05, 2021 13:50
[2021-05-05 15:00] VITALS: BP 91/61
--- NOTE | 2021-05-05 15:49 | EKG ---
[facility] [address] [place] [address] Test Date: 2021-05-05 Test Time: 14:40:54 Pat Name: ELOINA PALENCIA Department: Room: 506 Gender: F Guest Service Manager: : 1940 Requested By: BLAS ANDERSON Order Number: [id number] Reading MD: Measurements Intervals [place] Rate: 106 P: OK: QRS: -1 QRSD: 82 T: 152 QT: 314 QTc: 419 Interpretive Statements IRREGULAR RHYTHM, NO P-WAVE FOUND LEFTWARD AXIS LOW VOLTAGE T ABNORMALITY IN INFEROLATERAL LEADS ABNORMAL ECG RI6.02 Compared to ECG 05/03/2021 15:25:53 Low QRS voltage now present T-wave abnormality now present Sinus rhythm no longer present
[2021-05-05] MEDS: cefTRIAXone IV Push 1 GM VIAL. IVP SCH (17:59)
--- NOTE | 2021-05-05 18:36 | PDOC ---
[facility] PROGRESS NOTE Date of Service DOS: May 04 late entry Chief Complaint Chief Complaint Falls, diarrhea, weakness, hypokalemia, debility. The patient has been admitted. We will give her IV fluids, replace her potassium. Consult GI regarding the diarrhea stool studies. Home meds. Deep venous thrombosis prophylaxis. Full code. PT, OT. History of Present Illness History of Present Illness 05/04 Patient evaluate examined at bedside. Some ongoing diarrhea. Stool studies still pending. Discussed with bedside RN. Vitals/I&O Vitals/I&O: Vital Signs Date Time Temp Pulse Resp B/P (MAP) Pulse Ox O2 Delivery O2 Flow Rate FiO2 05/05/21 16:46 98 Nasal Cannula 3.0 05/05/21 15:00 98.0 102 20 91/61 (71) 98.0 I & O 05/04/21 05/04/21 05/05/21 15:00 23:00 07:00 Intake Total 300 ml 350 ml 500 ml Output Total 0 ml 300 ml Balance 300 ml 350 ml 200 ml Physical Exam General: Alert, Oriented X3, Cooperative Heart: Regular rate, Normal S1, Normal S2 Lungs: Other Abdomen: Normal bowel sounds, Soft, No tenderness, No hepatosplenomegaly, No masses Extremities: No clubbing Skin: No rashes Assessment and Plan Assessmemt and Plan Problems Medical Problems: (1) Fall at home Status: Acute (2) Hypokalemia due to excessive gastrointestinal loss of potassium Status: Acute Comment Review of Relevant I have reviewed the following items valeria (where applicable) has been applied. Medications: Current Medications Medications (Trade) Dose Ordered Sig/Carmen Route PRN Reason Start Time Stop Time Status Last Admin Dose Admin Lactobacillus Rhamnosus (Culturelle) 1 cap BID PO 05/04/21 21:00 05/05/21 08:45 Heparin Sodium (Porcine) (Heparin Sodium) 5,000 unit Q12HR SQ 05/04/21 21:00 05/05/21 08:49 Potassium Chloride (Klor-Con) 40 meq 1X ONCE PO 05/05/21 13:30 05/05/21 13:31 DC 05/05/21 14:39 Justifications for Admission Other Justification ELIESER VELAZCO MD May 05, 2021 18:36
--- NOTE | 2021-05-05 18:37 | PDOC ---
[facility] PROGRESS NOTE Date of Service DOS: DATE: 05/05/21 TIME: 18:36 Chief Complaint Chief Complaint Falls, diarrhea, weakness, hypokalemia, debility. The patient has been admitted. We will give her IV fluids, replace her potassium. Consult GI regarding the diarrhea stool studies. Home meds. Deep venous thrombosis prophylaxis. Full code. PT, OT. History of Present Illness History of Present Illness 05/05 Evaluated examined at bedside. Quite lethargic today today did receive opiates and Ativan overnight. Looks like A. fib with RVR on monitor. Check EKG. She was asleep in bed when this was noticed. We will continue to monitor. If ongoing can discuss with cardiology 05/04 Patient evaluate examined at bedside. Some ongoing diarrhea. Stool studies still pending. Discussed with bedside RN. Vitals/I&O Vitals/I&O: Vital Signs Date Time Temp Pulse Resp B/P (MAP) Pulse Ox O2 Delivery O2 Flow Rate FiO2 05/05/21 16:46 98 Nasal Cannula 3.0 05/05/21 15:00 98.0 102 20 91/61 (71) 98.0 I & O 05/04/21 05/04/21 05/05/21 15:00 23:00 07:00 Intake Total 300 ml 350 ml 500 ml Output Total 0 ml 300 ml Balance 300 ml 350 ml 200 ml Physical Exam General: Alert, Oriented X3, Cooperative Heart: Regular rate, Normal S1, Normal S2 Lungs: Other Abdomen: Normal bowel sounds, Soft, No tenderness, No hepatosplenomegaly, No masses Extremities: No clubbing Skin: No rashes Assessment and Plan Assessmemt and Plan Problems Medical Problems: (1) Fall at home Status: Acute (2) Hypokalemia due to excessive gastrointestinal loss of potassium Status: Acute Comment Review of Relevant I have reviewed the following items valeria (where applicable) has been applied. Medications: Current Medications Medications (Trade) Dose Ordered Sig/Carmen Route PRN Reason Start Time Stop Time Status Last Admin Dose Admin Lactobacillus Rhamnosus (Culturelle) 1 cap BID PO 05/04/21 21:00 05/05/21 08:45 Heparin Sodium (Porcine) (Heparin Sodium) 5,000 unit Q12HR SQ 05/04/21 21:00 05/05/21 08:49 Potassium Chloride (Klor-Con) 40 meq 1X ONCE PO 05/05/21 13:30 05/05/21 13:31 DC 05/05/21 14:39 Justifications for Admission Other Justification ELIESER VELAZCO MD May 05, 2021 18:37
[2021-05-05 19:00] VITALS: BP 122/54
[2021-05-05] MEDS: ATORVASTATIN CALCIUM 40 MG TABLET. PO SCH (21:05)
[2021-05-05] MEDS: clonazePAM 0.5 MG TABLET PO SCH (21:06)
[2021-05-05 22:03] LABS: FECAL OB PT POSITIVE (NEG)
[2021-05-05 23:00] VITALS: BP 123/55
[2021-05-06] MEDS: LEVOTHYROXINE 50 MCG TABLET PO SCH (06:32)
[2021-05-06 07:00] VITALS: BP 124/64
[2021-05-06 08:06] LABS: BASO % 0 % (0-3); EOS # 0.1 x10^3/uL (0.0-0.7); EOS % 4 % (0-3); HEMATOCRIT 28.2 % (36.0-47.0); HEMOGLOBIN 8.8 g/dL (12.0-15.5); LYMPH # 0.7 x10^3/uL (1.0-4.8); LYMPH % 28 % (24-48); MEAN CORPUSCULAR HEMOGLOBIN 29 pg (25-35); MEAN CORPUSCULAR HGB CONC 31 g/dL (31-37); MEAN CORPUSCULAR VOLUME 92 fL (79-100); MONO # 0.3 x10^3/uL (0.0-1.1); MONO % 11 % (0-9); NEUT # 1.5 x10^3/uL (1.8-7.7); NEUT % 58 % (31-73); PLATELET COUNT 139 x10^3/uL (140-400); RED BLOOD COUNT 3.09 x10^6/uL (3.50-5.40); RED CELL DISTRIBUTION WIDTH 16.2 % (11.5-14.5); WHITE BLOOD COUNT 2.6 x10^3/uL (4.0-11.0)
[2021-05-06] MEDS: FUROSEMIDE 20 MG TABLET PO SCH (08:23)
[2021-05-06] MEDS: GABAPENTIN 300 MG CAPSULE. PO SCH ×2 (08:23→21:16)
[2021-05-06] MEDS: ASPIRIN ENTERIC COATED 81 MG TABLET.DR. PO SCH (08:23)
[2021-05-06] MEDS: LACTOBACILLUS RHAMNOSUS GG 1 CAPSULE. PO SCH ×2 (08:24→21:17)
[2021-05-06] MEDS: LISINOPRIL 20 MG TABLET PO SCH (08:24)
[2021-05-06 08:30] LABS: ALBUMIN 2.5 g/dL (3.4-5.0); CALCIUM 7.9 mg/dL (8.5-10.1); CREATININE 0.8 mg/dL (0.6-1.0); GFR 68.8; TOTAL BILIRUBIN 0.3 mg/dL (0.2-1.0); TOTAL PROTEIN 4.9 g/dL (6.4-8.2)
[2021-05-06] MEDS: HYDROcodone/APAP 5/325MG 1 TAB TABLET PO PRN ×2 (08:30→21:17)
[2021-05-06] MEDS: HEPARIN for SUB-Q USE 5,000 UNIT/ML VIAL. SQ SCH ×2 (08:36→21:26)
[2021-05-06 08:38] LABS: POTASSIUM 2.6 mmol/L (3.5-5.1)
[2021-05-06] MEDS: POTASSIUM CHLORIDE 20 MEQ TABLET.ER. PO SCH ×2 (09:12→12:43)
[2021-05-06] MEDS: BUDESONIDE 0.5 MG/2 ML NEBU. NEB SCH ×2 (09:18→21:09)
[2021-05-06] MEDS: ALBUTEROL SULFATE 2.5 MG/3 ML NEBU. NEB SCH ×4 (09:18→21:09)
[2021-05-06 11:00] VITALS: BP 115/65
--- NOTE | 2021-05-06 11:43 | PDOC ---
Date of Service: DATE: 05/06/21 TIME: 11:38 Subjective: Subjective: Diarrhea is better - thinks it started in July. No abdominal pain. Objective: Objective: D/w nurse - less diarrhea, C Diff sent yesterday. Distal "colitis" on CT from 01/2021. Vital Signs: Vital Signs Date Time Temp Pulse Resp B/P (MAP) Pulse Ox O2 Delivery O2 Flow Rate FiO2 05/06/21 09:18 96 Nasal Cannula 3.0 05/06/21 08:24 86 124/64 05/06/21 07:00 98.4 16 98.4 Labs: Laboratory Tests Test 05/05/21 21:13 05/06/21 06:35 Stool Occult Blood Positive White Blood Count 2.6 x10^3/uL Red Blood Count 3.09 x10^6/uL Hemoglobin 8.8 g/dL Hematocrit 28.2 % Mean Corpuscular Volume 92 fL Mean Corpuscular Hemoglobin 29 pg Mean Corpuscular Hemoglobin Concent 31 g/dL Red Cell Distribution Width 16.2 % Platelet Count 139 x10^3/uL Neutrophils (%) (Auto) 58 % Lymphocytes (%) (Auto) 28 % Monocytes (%) (Auto) 11 % Eosinophils (%) (Auto) 4 % Basophils (%) (Auto) 0 % Neutrophils # (Auto) 1.5 x10^3/uL Lymphocytes # (Auto) 0.7 x10^3/uL Monocytes # (Auto) 0.3 x10^3/uL Eosinophils # (Auto) 0.1 x10^3/uL Basophils # (Auto) 0.0 x10^3/uL Sodium Level 148 mmol/L Potassium Level 2.6 mmol/L Chloride Level 108 mmol/L Carbon Dioxide Level 33 mmol/L Anion Gap 7 Blood Urea Nitrogen 8 mg/dL Creatinine 0.8 mg/dL Estimated GFR (Cockcroft-Gault) 68.8 BUN/Creatinine Ratio 10 Glucose Level 91 mg/dL Calcium Level 7.9 mg/dL Total Bilirubin 0.3 mg/dL Aspartate Amino Transf (AST/SGOT) 21 U/L Alanine Aminotransferase (ALT/SGPT) 15 U/L Alkaline Phosphatase 63 U/L Total Protein 4.9 g/dL Albumin 2.5 g/dL Albumin/Globulin Ratio 1.0 FECAL WBC,GRAM STAIN Final WBCS OCCASIONAL CULTURE URINE Final THREE OR MORE ORGANISMS ISOLATED. RESULTS CONSISTENT WITH COLONIZATION OR CONTAMINATION DURING COLLECTION PROCESS. RECOLLECTION RECOMMENDED USING A METHOD TO MINIMIZE CONTAMINATION. PE: GEN: NAD LUNGS: clear, NC 3L HEART: RRR ABD: NABS, S/ND/NT NEURO/PSYCH: A & O 3 A/P: Chronic diarrhea Pancytopenia, hypokalemia, +Hemoccult on ASA -- Diarrhea improved, stool tests pending - awaiting these. Has appt w/ [facility] next week. Check anemia parameters. Justicifation of Admission Dx: Justifications for Admission: Justification of Admission Dx: Comment: NARA KHOURY May 06, 2021 11:43
--- NOTE | 2021-05-06 13:44 | NUR ---
SW following. Discussed with RN, pt from independent living, uses oxygen at home, regular diet. PT/OT following. Pt almost fell a couple times here. SW requested COVID-19 PCR from RN for placement. SEAN met with pt's son at bedside - would like [facility] [place]. SEAN notified Beto at [facility]. Referral to be sent tomorrow with therapy notes. SEAN will continue to follow.
[2021-05-06 16:00] VITALS: BP 128/60
[2021-05-06] MEDS: cefTRIAXone IV Push 1 GM VIAL. IVP SCH (17:38)
[2021-05-06] MEDS: VANCOMYCIN 125 MG/2.5 ML ORAL SOLUTION. PO SCH ×2 (17:39→21:18)
[2021-05-06 19:52] VITALS: BP 124/85
--- NOTE | 2021-05-06 19:55 | PDOC ---
[facility] PROGRESS NOTE Date of Service DOS: DATE: 05/06/21 TIME: 19:54 Chief Complaint Chief Complaint Falls, diarrhea, weakness, hypokalemia, debility. The patient has been admitted. We will give her IV fluids, replace her potassium. Consult GI regarding the diarrhea stool studies. Home meds. Deep venous thrombosis prophylaxis. Full code. PT, OT. History of Present Illness History of Present Illness 05/06 Patient evaluated examined at bedside. Said she was doing okay with ongoing diarrhea. C. difficile came back positive today start oral Vanco. We will continue to monitor. Discussed bedside RN and pharmacy. 05/05 Evaluated examined at bedside. Quite lethargic today today did receive opiates and Ativan overnight. Looks like A. fib with RVR on monitor. Check EKG. She was asleep in bed when this was noticed. We will continue to monitor. If ongoing can discuss with cardiology 05/04 Patient evaluate examined at bedside. Some ongoing diarrhea. Stool studies still pending. Discussed with bedside RN. Vitals/I&O Vitals/I&O: Vital Signs Date Time Temp Pulse Resp B/P (MAP) Pulse Ox O2 Delivery O2 Flow Rate FiO2 05/06/21 19:52 99.4 114 20 124/85 (98) 97 Nasal Cannula 3.0 99.4 I & O 05/05/21 05/05/21 05/06/21 15:00 23:00 07:00 Intake Total 280 ml 680 ml 100 ml Output Total 300 ml 340 ml Balance -20 ml 340 ml 100 ml Physical Exam General: Alert, Oriented X3, Cooperative Heart: Regular rate, Normal S1, Normal S2 Lungs: Other Abdomen: Normal bowel sounds, Soft, No tenderness, No hepatosplenomegaly, No masses Extremities: No clubbing Skin: No rashes Labs Labs: Laboratory Tests Test 05/05/21 21:13 05/06/21 06:35 Stool Occult Blood Positive (NEG) Stool Campylobacter PCR Negative (NEGATIVE) Stool E. coli Shiga Toxins (PCR) Negative (NEGATIVE) Stool Salmonella PCR Negative (NEGATIVE) Stool Shigella PCR Negative (NEGATIVE) Clostridium difficile Toxin (PCR) Positive (NEGATIVE) White Blood Count 2.6 x10^3/uL (4.0-11.0) Red Blood Count 3.09 x10^6/uL (3.50-5.40) Hemoglobin 8.8 g/dL (12.0-15.5) Hematocrit 28.2 % (36.0-47.0) Mean Corpuscular Volume 92 fL (79-100) Mean Corpuscular Hemoglobin 29 pg (25-35) Mean Corpuscular Hemoglobin Concent 31 g/dL (31-37) Red Cell Distribution Width 16.2 % (11.5-14.5) Platelet Count 139 x10^3/uL (140-400) Neutrophils (%) (Auto) 58 % (31-73) Lymphocytes (%) (Auto) 28 % (24-48) Monocytes (%) (Auto) 11 % (0-9) Eosinophils (%) (Auto) 4 % (0-3) Basophils (%) (Auto) 0 % (0-3) Neutrophils # (Auto) 1.5 x10^3/uL (1.8-7.7) Lymphocytes # (Auto) 0.7 x10^3/uL (1.0-4.8) Monocytes # (Auto) 0.3 x10^3/uL (0.0-1.1) Eosinophils # (Auto) 0.1 x10^3/uL (0.0-0.7) Basophils # (Auto) 0.0 x10^3/uL (0.0-0.2) Sodium Level 148 mmol/L (136-145) Potassium Level 2.6 mmol/L (3.5-5.1) Chloride Level 108 mmol/L (98-107) Carbon Dioxide Level 33 mmol/L (21-32) Anion Gap 7 (6-14) Blood Urea Nitrogen 8 mg/dL (7-20) Creatinine 0.8 mg/dL (0.6-1.0) Estimated GFR (Cockcroft-Gault) 68.8 BUN/Creatinine Ratio 10 (6-20) Glucose Level 91 mg/dL (70-99) Calcium Level 7.9 mg/dL (8.5-10.1) Iron Level 26 ug/dL (50-170) Total Iron Binding Capacity 192 ug/dL (250-450) Iron Saturation 14 % (15-34) Total Bilirubin 0.3 mg/dL (0.2-1.0) Aspartate Amino Transf (AST/SGOT) 21 U/L (15-37) Alanine Aminotransferase (ALT/SGPT) 15 U/L (14-59) Alkaline Phosphatase 63 U/L (46-116) Total Protein 4.9 g/dL (6.4-8.2) Albumin 2.5 g/dL (3.4-5.0) Albumin/Globulin Ratio 1.0 (1.0-1.7) Vitamin B12 Level 515 pg/mL (247-911) Assessment and Plan Assessmemt and Plan Problems Medical Problems: (1) Fall at home Status: Acute (2) Hypokalemia due to excessive gastrointestinal loss of potassium Status: Acute Comment Review of Relevant I have reviewed the following items valeria (where applicable) has been applied. Medications: Current Medications Medications (Trade) Dose Ordered Sig/Carmen Route PRN Reason Start Time Stop Time Status Last Admin Dose Admin Potassium Chloride (Klor-Con) 40 meq Q4HRS PO 05/06/21 09:00 05/06/21 12:01 DC 05/06/21 12:43 Vancomycin HCl (Vancomycin Oral Solution) 125 mg [id number] PO 05/06/21 17:00 05/06/21 17:39 Justifications for Admission Other Justification ELIESER VELAZCO MD May 06, 2021 19:55
[2021-05-06] MEDS: ATORVASTATIN CALCIUM 40 MG TABLET. PO SCH (21:16)
[2021-05-06] MEDS: clonazePAM 0.5 MG TABLET PO SCH (21:18)
[2021-05-06 23:19] VITALS: BP 132/60
[2021-05-07 03:52] VITALS: BP 136/69
[2021-05-07] MEDS: LEVOTHYROXINE 50 MCG TABLET PO SCH (06:08)
[2021-05-07] MEDS: HYDROcodone/APAP 5/325MG 1 TAB TABLET PO PRN ×2 (06:51→17:42)
[2021-05-07 07:00] VITALS: BP 107/62
[2021-05-07] MEDS: BUDESONIDE 0.5 MG/2 ML NEBU. NEB SCH ×2 (08:01→20:39)
[2021-05-07] MEDS: ALBUTEROL SULFATE 2.5 MG/3 ML NEBU. NEB SCH ×4 (08:01→20:39)
--- NOTE | 2021-05-07 09:04 | PDOC ---
Date of Service: DATE: 05/07/21 TIME: 09:01 Subjective: Subjective: Feels cold. Back and legs hurt. Diarrhea better. Ate all of breakfast. Objective: Vital Signs: Vital Signs Date Time Temp Pulse Resp B/P (MAP) Pulse Ox O2 Delivery O2 Flow Rate FiO2 05/07/21 08:05 98 Nasal Cannula 3.0 05/07/21 07:00 98.3 89 19 107/62 (77) 98.3 PE: GEN: NAD, blankets pulled up to chin, breakfast tray 100% consumed LUNGS: clear, NC 3L HEART: RRR ABD: S/ND/NT NEURO/PSYCH: A & O 3 A/P: C Diff - started vanco yesterday, diarrhea improving ACD/ISSA/pancytopenia, +Hemoccult on ASA Hypokalemia - per primary -- Continue vanco. Today's labs pending. Justicifation of Admission Dx: Justifications for Admission: Justification of Admission Dx: Comment: NARA KHOURY May 07, 2021 09:04
[2021-05-07 09:44] LABS: HEMATOCRIT 28.6 % (36.0-47.0); RED BLOOD COUNT 3.15 x10^6/uL (3.50-5.40); RED CELL DISTRIBUTION WIDTH 16.4 % (11.5-14.5); WHITE BLOOD COUNT 2.5 x10^3/uL (4.0-11.0)
[2021-05-07 09:50] LABS: GFR 53.2
[2021-05-07 10:00] LABS: POTASSIUM 2.7 mmol/L (3.5-5.1)
[2021-05-07] MEDS: LACTOBACILLUS RHAMNOSUS GG 1 CAPSULE. PO SCH ×2 (10:37→20:54)
[2021-05-07] MEDS: FUROSEMIDE 20 MG TABLET PO SCH (10:37)
[2021-05-07] MEDS: VANCOMYCIN 125 MG/2.5 ML ORAL SOLUTION. PO SCH ×4 (10:37→20:55)
[2021-05-07] MEDS: ASPIRIN ENTERIC COATED 81 MG TABLET.DR. PO SCH (10:37)
[2021-05-07] MEDS: GABAPENTIN 300 MG CAPSULE. PO SCH ×2 (10:38→20:55)
[2021-05-07] MEDS: LISINOPRIL 20 MG TABLET PO SCH (10:38)
[2021-05-07] MEDS: HEPARIN for SUB-Q USE 5,000 UNIT/ML VIAL. SQ SCH ×2 (10:45→20:56)
[2021-05-07 11:00] VITALS: BP 115/76
[2021-05-07] MEDS: POTASSIUM CHLORIDE 20 MEQ TABLET.ER. PO SCH ×2 (11:07→17:42)
--- NOTE | 2021-05-07 12:16 | PDOC ---
[facility] PROGRESS NOTE Date of Service DOS: DATE: 05/07/21 TIME: 12:15 Chief Complaint Chief Complaint Falls, diarrhea, weakness, hypokalemia, debility. The patient has been admitted. We will give her IV fluids, replace her potassium. Consult GI regarding the diarrhea stool studies. Home meds. Deep venous thrombosis prophylaxis. Full code. PT, OT. History of Present Illness History of Present Illness 05/07: Patient examined at bedside. States diarrhea is improved to just loose stools. Continue oral vancomycin for C. difficile infection. Worse 3 L of oxygen chronically due to history of COPD. Will discuss with social workers about discharge in the next day or so to assisted living facility. 05/06 Patient evaluated examined at bedside. Said she was doing okay with ongoing diarrhea. C. difficile came back positive today start oral Vanco. We will continue to monitor. Discussed bedside RN and pharmacy. 05/05 Evaluated examined at bedside. Quite lethargic today today did receive opiates and Ativan overnight. Looks like A. fib with RVR on monitor. Check EKG. She was asleep in bed when this was noticed. We will continue to monitor. If ongoing can discuss with cardiology 05/04 Patient evaluate examined at bedside. Some ongoing diarrhea. Stool studies still pending. Discussed with bedside RN. Vitals/I&O Vitals/I&O: Vital Signs Date Time Temp Pulse Resp B/P (MAP) Pulse Ox O2 Delivery O2 Flow Rate FiO2 05/07/21 11:40 Nasal Cannula 3.0 05/07/21 11:00 97.9 97 18 115/76 (89) 95 97.9 I & O 05/06/21 05/06/21 05/07/21 15:00 23:00 07:00 Intake Total 240 ml 120 ml Output Total 2 ml Balance 240 ml 120 ml -2 ml Physical Exam General: Alert, Oriented X3, Cooperative Heart: Regular rate, Normal S1, Normal S2 Lungs: Other Abdomen: Normal bowel sounds, Soft, No tenderness, No hepatosplenomegaly, No masses Extremities: No clubbing Skin: No rashes Labs Labs: Laboratory Tests Test 05/07/21 09:31 White Blood Count 2.5 x10^3/uL (4.0-11.0) Red Blood Count 3.15 x10^6/uL (3.50-5.40) Hemoglobin 9.0 g/dL (12.0-15.5) Hematocrit 28.6 % (36.0-47.0) Mean Corpuscular Volume 91 fL (79-100) Mean Corpuscular Hemoglobin 29 pg (25-35) Mean Corpuscular Hemoglobin Concent 32 g/dL (31-37) Red Cell Distribution Width 16.4 % (11.5-14.5) Platelet Count 131 x10^3/uL (140-400) Sodium Level 151 mmol/L (136-145) Potassium Level 2.7 mmol/L (3.5-5.1) Chloride Level 109 mmol/L (98-107) Carbon Dioxide Level 33 mmol/L (21-32) Anion Gap 9 (6-14) Blood Urea Nitrogen 5 mg/dL (7-20) Creatinine 1.0 mg/dL (0.6-1.0) Estimated GFR (Cockcroft-Gault) 53.2 Glucose Level 142 mg/dL (70-99) Calcium Level 8.0 mg/dL (8.5-10.1) Assessment and Plan Assessmemt and Plan Problems Medical Problems: (1) Fall at home Status: Acute (2) Hypokalemia due to excessive gastrointestinal loss of potassium Status: Acute Comment Review of Relevant I have reviewed the following items valeria (where applicable) has been applied. Medications: Current Medications Medications (Trade) Dose Ordered Sig/Carmen Route PRN Reason Start Time Stop Time Status Last Admin Dose Admin Vancomycin HCl (Vancomycin Oral Solution) 125 mg [id number] PO 05/06/21 17:00 05/07/21 10:37 Potassium Chloride (Klor-Con) 40 meq Q4HRS PO 05/07/21 12:00 05/07/21 16:01 05/07/21 11:07 Justifications for Admission Other Justification TIGIST CORTES MD May 07, 2021 12:16
--- NOTE | 2021-05-07 13:11 | NUR ---
SW following. Chart reviewed. Therapy still on hold due to potassium. Referral faxed to [facility]. SW will continue to follow.
[2021-05-07 15:00] VITALS: BP 145/74
[2021-05-07 19:00] VITALS: BP 119/68
[2021-05-07] MEDS: clonazePAM 0.5 MG TABLET PO SCH (20:54)
[2021-05-07] MEDS: ATORVASTATIN CALCIUM 40 MG TABLET. PO SCH (20:55)
[2021-05-07 23:03] VITALS: BP 135/71
[2021-05-08 02:44] VITALS: BP 108/51
[2021-05-08] MEDS: LEVOTHYROXINE 50 MCG TABLET PO SCH (05:40)
[2021-05-08 07:00] VITALS: BP 102/54
[2021-05-08] MEDS: ALBUTEROL SULFATE 2.5 MG/3 ML NEBU. NEB SCH ×4 (07:25→20:30)
[2021-05-08] MEDS: BUDESONIDE 0.5 MG/2 ML NEBU. NEB SCH ×2 (07:26→20:30)
[2021-05-08 07:34] LABS: BASO % 1 % (0-3); EOS # 0.1 x10^3/uL (0.0-0.7); EOS % 4 % (0-3); HEMATOCRIT 29.3 % (36.0-47.0); HEMOGLOBIN 9.4 g/dL (12.0-15.5); LYMPH # 0.6 x10^3/uL (1.0-4.8); LYMPH % 26 % (24-48); MEAN CORPUSCULAR HEMOGLOBIN 29 pg (25-35); MEAN CORPUSCULAR HGB CONC 32 g/dL (31-37); MEAN CORPUSCULAR VOLUME 91 fL (79-100); MONO # 0.2 x10^3/uL (0.0-1.1); MONO % 11 % (0-9); NEUT # 1.3 x10^3/uL (1.8-7.7); NEUT % 59 % (31-73); PLATELET COUNT 112 x10^3/uL (140-400); RED BLOOD COUNT 3.22 x10^6/uL (3.50-5.40); RED CELL DISTRIBUTION WIDTH 16.4 % (11.5-14.5); WHITE BLOOD COUNT 2.2 x10^3/uL (4.0-11.0)
[2021-05-08 07:42] LABS: CALCIUM 8.2 mg/dL (8.5-10.1); CREATININE 0.9 mg/dL (0.6-1.0); GFR 60.1; POTASSIUM 3.3 mmol/L (3.5-5.1)
[2021-05-08] MEDS: ASPIRIN ENTERIC COATED 81 MG TABLET.DR. PO SCH (08:28)
[2021-05-08] MEDS: FUROSEMIDE 20 MG TABLET PO SCH (08:28)
[2021-05-08] MEDS: LACTOBACILLUS RHAMNOSUS GG 1 CAPSULE. PO SCH ×2 (08:28→21:28)
[2021-05-08] MEDS: GABAPENTIN 300 MG CAPSULE. PO SCH ×2 (08:29→21:28)
[2021-05-08] MEDS: VANCOMYCIN 125 MG/2.5 ML ORAL SOLUTION. PO SCH ×4 (08:29→21:28)
[2021-05-08] MEDS: LISINOPRIL 20 MG TABLET PO SCH (08:29)
[2021-05-08] MEDS: POTASSIUM CHLORIDE 20 MEQ TABLET.ER. PO SCH (08:30)
[2021-05-08] MEDS: HEPARIN for SUB-Q USE 5,000 UNIT/ML VIAL. SQ SCH ×2 (08:35→21:30)
--- NOTE | 2021-05-08 09:23 | PDOC ---
Date of Service: DATE: 05/08/21 TIME: 09:21 Subjective: Subjective: "Still squirting." 1 stool today, 4 yesterday afternoon - better overall. Nurse present - pt w/ leg cramp, IV issues. Objective: Vital Signs: Vital Signs Date Time Temp Pulse Resp B/P (MAP) Pulse Ox O2 Delivery O2 Flow Rate FiO2 05/08/21 08:29 95 108/51 05/08/21 07:26 Nasal Cannula 3.0 05/08/21 07:00 97.7 16 98 97.7 Labs: Laboratory Tests Test 05/07/21 09:31 05/08/21 06:17 White Blood Count 2.5 x10^3/uL 2.2 x10^3/uL Red Blood Count 3.15 x10^6/uL 3.22 x10^6/uL Hemoglobin 9.0 g/dL 9.4 g/dL Hematocrit 28.6 % 29.3 % Mean Corpuscular Volume 91 fL 91 fL Mean Corpuscular Hemoglobin 29 pg 29 pg Mean Corpuscular Hemoglobin Concent 32 g/dL 32 g/dL Red Cell Distribution Width 16.4 % 16.4 % Platelet Count 131 x10^3/uL 112 x10^3/uL Sodium Level 151 mmol/L 148 mmol/L Potassium Level 2.7 mmol/L 3.3 mmol/L Chloride Level 109 mmol/L 108 mmol/L Carbon Dioxide Level 33 mmol/L 36 mmol/L Anion Gap 9 4 Blood Urea Nitrogen 5 mg/dL 5 mg/dL Creatinine 1.0 mg/dL 0.9 mg/dL Estimated GFR (Cockcroft-Gault) 53.2 60.1 Glucose Level 142 mg/dL 89 mg/dL Calcium Level 8.0 mg/dL 8.2 mg/dL Neutrophils (%) (Auto) 59 % Lymphocytes (%) (Auto) 26 % Monocytes (%) (Auto) 11 % Eosinophils (%) (Auto) 4 % Basophils (%) (Auto) 1 % Neutrophils # (Auto) 1.3 x10^3/uL Lymphocytes # (Auto) 0.6 x10^3/uL Monocytes # (Auto) 0.2 x10^3/uL Eosinophils # (Auto) 0.1 x10^3/uL Basophils # (Auto) 0.0 x10^3/uL PE: GEN: NAD LUNGS: CTAB HEART: RRR ABD: soft, non-tender, non-distended NEURO/PSYCH: A & O 3 A/P: C Diff ACD/ISSA/pancytopenia, +Hemoccult on ASA Hypernatremia, hypokalemia - better -- Continue vanco. Justicifation of Admission Dx: Justifications for Admission: Justification of Admission Dx: Comment: NARA KHOURY May 08, 2021 09:23
[2021-05-08] MEDS ORDERED: POTASSIUM CHLORIDE 20 MEQ TABLET.ER. PO ONE (10:00)
[2021-05-08] MEDS: HYDROcodone/APAP 5/325MG 1 TAB TABLET PO PRN ×2 (10:32→21:28)
[2021-05-08 11:00] VITALS: BP 112/62
[2021-05-08] MEDS: ALPRAZolam 0.25 MG TABLET PO PRN ×2 (11:02→21:28)
--- NOTE | 2021-05-08 11:17 | PDOC ---
[facility] PROGRESS NOTE Date of Service DOS: DATE: 05/08/21 TIME: 11:13 Chief Complaint Chief Complaint Falls, diarrhea, weakness, hypokalemia, debility. The patient has been admitted. We will give her IV fluids, replace her potassium. Consult GI regarding the diarrhea stool studies. Home meds. Deep venous thrombosis prophylaxis. Full code. PT, OT. History of Present Illness History of Present Illness 05/08/2021 No acute events overnight. Patient seen examined bedside. Patient having leg cramps. Still having some diarrhea but has decreased in frequency. She calls the squirts. Pending PT OT evaluation. Patient's chart, labs, images were reviewed and discussed with RN 05/07: Patient examined at bedside. States diarrhea is improved to just loose stools. Continue oral vancomycin for C. difficile infection. Worse 3 L of oxygen chronically due to history of COPD. Will discuss with social workers about discharge in the next day or so to assisted living facility. 05/06 Patient evaluated examined at bedside. Said she was doing okay with ongoing diarrhea. C. difficile came back positive today start oral Vanco. We will continue to monitor. Discussed bedside RN and pharmacy. 05/05 Evaluated examined at bedside. Quite lethargic today today did receive opiates and Ativan overnight. Looks like A. fib with RVR on monitor. Check EKG. She was asleep in bed when this was noticed. We will continue to monitor. If ongoing can discuss with cardiology 05/04 Patient evaluate examined at bedside. Some ongoing diarrhea. Stool studies still pending. Discussed with bedside RN. Vitals/I&O Vitals/I&O: Vital Signs Date Time Temp Pulse Resp B/P (MAP) Pulse Ox O2 Delivery O2 Flow Rate FiO2 05/08/21 10:32 20 98 Nasal Cannula 3.0 05/08/21 08:29 95 108/51 05/08/21 07:00 97.7 97.7 I & O 05/07/21 05/07/21 05/08/21 15:00 23:00 07:00 Intake Total 250 ml 300 ml Output Total 1 ml Balance 249 ml 300 ml Physical Exam General: Alert, Oriented X3, Cooperative Heart: Regular rate, Normal S1, Normal S2 Lungs: Other Abdomen: Normal bowel sounds, Soft, No tenderness, No hepatosplenomegaly, No masses Extremities: No clubbing Skin: No rashes Labs Labs: Laboratory Tests Test 05/08/21 06:17 05/08/21 10:04 White Blood Count 2.2 x10^3/uL (4.0-11.0) Red Blood Count 3.22 x10^6/uL (3.50-5.40) Hemoglobin 9.4 g/dL (12.0-15.5) Hematocrit 29.3 % (36.0-47.0) Mean Corpuscular Volume 91 fL (79-100) Mean Corpuscular Hemoglobin 29 pg (25-35) Mean Corpuscular Hemoglobin Concent 32 g/dL (31-37) Red Cell Distribution Width 16.4 % (11.5-14.5) Platelet Count 112 x10^3/uL (140-400) Neutrophils (%) (Auto) 59 % (31-73) Lymphocytes (%) (Auto) 26 % (24-48) Monocytes (%) (Auto) 11 % (0-9) Eosinophils (%) (Auto) 4 % (0-3) Basophils (%) (Auto) 1 % (0-3) Neutrophils # (Auto) 1.3 x10^3/uL (1.8-7.7) Lymphocytes # (Auto) 0.6 x10^3/uL (1.0-4.8) Monocytes # (Auto) 0.2 x10^3/uL (0.0-1.1) Eosinophils # (Auto) 0.1 x10^3/uL (0.0-0.7) Basophils # (Auto) 0.0 x10^3/uL (0.0-0.2) Sodium Level 148 mmol/L (136-145) Potassium Level 3.3 mmol/L (3.5-5.1) Chloride Level 108 mmol/L (98-107) Carbon Dioxide Level 36 mmol/L (21-32) Anion Gap 4 (6-14) Blood Urea Nitrogen 5 mg/dL (7-20) Creatinine 0.9 mg/dL (0.6-1.0) Estimated GFR (Cockcroft-Gault) 60.1 Glucose Level 89 mg/dL (70-99) Calcium Level 8.2 mg/dL (8.5-10.1) Lactic Acid Level 0.9 mmol/L (0.4-2.0) Assessment and Plan Assessmemt and Plan Problems Medical Problems: (1) Fall at home Status: Acute (2) Hypokalemia due to excessive gastrointestinal loss of potassium Status: Acute Comment Review of Relevant I have reviewed the following items valeria (where applicable) has been applied. Medications: Current Medications Medications (Trade) Dose Ordered Sig/Carmen Route PRN Reason Start Time Stop Time Status Last Admin Dose Admin Potassium Chloride (Klor-Con) 40 meq Q4HRS PO 05/07/21 12:00 05/07/21 16:01 DC 05/07/21 17:42 Potassium Chloride (Klor-Con) 20 meq DAILYWBKFT PO 05/08/21 08:00 05/08/21 08:30 Potassium Chloride (Klor-Con) 40 meq 1X ONCE PO 05/08/21 10:00 05/08/21 10:01 DC 05/08/21 09:17 Justifications for Admission Other Justification LILLIANA VERDE MD May 08, 2021 11:17
--- NOTE | 2021-05-08 12:22 | NUR ---
SEAN following. Discussed with RN, therapy notes faxed to [facility], awaiting acceptance decision. SEAN will continue to follow. Addendum: 05/08/21 at 1409 by DIMA ESTRADA Pt accepted at [facility] and can discharge there today pending pt's son providing vaccine card info today. Dr. Prakash agreeable to discharge. Awaiting discharge orders to fax. SEAN will continue to follow. Addendum: 05/08/21 at 1619 by DIMA ESTRADA Pt's son cannot get the vaccine information until tomorrow, so will provide in the morning. Pt can discharge to [facility] tomorrow (05/09/21). RN notified.
[2021-05-08] MEDS ORDERED: VANC500V PO (14:40)
--- NOTE | 2021-05-08 14:41 | SNU/HH DC ---
DISCHARGE ORDERS DISCHARGE INFORMATION: DISCHARGE DATE: May 08, 2021 FINAL DIAGNOSIS Problems Medical Problems: (1) Fall at home Status: Acute (2) Hypokalemia due to excessive gastrointestinal loss of potassium Status: Acute CONDITION ON DISCHARGE: Stable CODE STATUS: Code Status: Full [facility]: SNF STAY <30 DAYS: Yes POST DISCHARGE ORDERS: ACTIVITY ORDERS: Activity as tolerated WEIGHT BEARING STATUS: As tolerated DIET AFTER DISCHARGE: Cardiac CHECKS AFTER DISCHARGE: CHECKS AFTER DISCHARGE: Check blood press - daily, Check your Temp as needed FOLLOW-UP: PHYSICIAN FOLLOW-UP: PCP within 2 weeks of discharge ADDITIONAL FOLLOW-UP: GI as scheduled or as needed LAB ORDERS FOR FOLLOW-UP: CBC, CMP TREATMENT/EQUIPMENT ORDERS: ADAPTIVE EQUIPMENT NEEDED: None DISCHARGE MEDICATIONS: Home Meds Active Scripts Vancomycin Hcl (VANCOMYCIN HCL) 500 Mg Vial, 125 MG PO [id number] for C Diff infection for 10 Days, #40 EACH Prov:LILLIANA VERDE MD 05/08/21 Aspirin (ASPIRIN EC) 81 Mg Tablet.dr, 81 MG PO DAILYWBKFT for cad for 60 Days, #60 TAB.SR Prov:ELIESER VELAZCO MD 09/01/20 Hydrocodone/Acetaminophen (Lorcet 5-325 mg Tablet) 1 Each Tablet, 1 EACH PO Q6HRS, #120 TAB Prov:STEVEN HER MD 07/20/14 Lisinopril (LISINOPRIL) 20 Mg Tablet, 20 MG PO DAILY for FOR HYPERTENSION, #30 TAB 0 Refills Prov:STEVEN HER MD 07/20/14 [Toprol Xl] No Conflict Check Prov:STEVEN HER MD 07/20/14 Albuterol Sulfate (ALBUTEROL SULFATE NEB SOLN) 2.5 Mg/3 Ml Vial.neb, 1 VIAL NEB PRN Q4HRS, #50 VIAL Prov:STEVEN HER MD 07/20/14 Fluticasone/Salmeterol (ADVAIR 250-50 DISKUS) 1 Each Disk.w.dev, 1 PUFF IH BID, #3 INHALER 3 Refills Prov:STEVEN HER MD 07/20/14 Levothyroxine Sodium (SYNTHROID) 50 Mcg Tablet, 1 TAB PO DAILY, #30 TAB 5 Refills Prov:STEVEN HER MD 07/20/14 Atorvastatin Calcium (LIPITOR) 40 Mg Tablet, 40 MG PO QHS, #30 TAB Prov:Tian ALEXANDER MD 03/09/14 Reported Medications Clonazepam (CLONAZEPAM) 1 Mg Tablet, 1 TAB PO QHS, #30 TAB 07/20/14 Alprazolam (XANAX) 0.25 Mg Tablet, 0.25 MG PO PRN TID 04/09/13 Amlodipine Besylate (AMLODIPINE BESYLATE) 5 Mg Tablet, 10 MG PO HS 02/19/13 Furosemide (FUROSEMIDE) 20 Mg Tablet, 40 MG PO DAILY 02/19/13 Gabapentin (GABAPENTIN ) 100 Mg Capsule, 600 MG PO QID 02/19/13 LILLIANA VERDE MD May 08, 2021 14:41
[2021-05-08 15:00] VITALS: BP 124/67
[2021-05-08 19:00] VITALS: BP 140/83
[2021-05-08] MEDS: clonazePAM 0.5 MG TABLET PO SCH (21:28)
[2021-05-08] MEDS: ATORVASTATIN CALCIUM 40 MG TABLET. PO SCH (21:28)
[2021-05-08 23:33] VITALS: BP 140/77
[2021-05-09 03:46] VITALS: BP 117/60
[2021-05-09 07:00] VITALS: BP 110/56
[2021-05-09] MEDS: LEVOTHYROXINE 50 MCG TABLET PO SCH (07:14)
[2021-05-09] MEDS: BUDESONIDE 0.5 MG/2 ML NEBU. NEB SCH (07:17)
[2021-05-09] MEDS: ALBUTEROL SULFATE 2.5 MG/3 ML NEBU. NEB SCH ×2 (07:17→11:00)
[2021-05-09] MEDS: VANCOMYCIN 125 MG/2.5 ML ORAL SOLUTION. PO SCH ×2 (07:55→13:00)
[2021-05-09] MEDS: POTASSIUM CHLORIDE 20 MEQ TABLET.ER. PO SCH (07:55)
[2021-05-09] MEDS: LACTOBACILLUS RHAMNOSUS GG 1 CAPSULE. PO SCH (07:56)
[2021-05-09] MEDS: ASPIRIN ENTERIC COATED 81 MG TABLET.DR. PO SCH (07:56)
[2021-05-09] MEDS: LISINOPRIL 20 MG TABLET PO SCH (07:56)
[2021-05-09] MEDS: HEPARIN for SUB-Q USE 5,000 UNIT/ML VIAL. SQ SCH (07:58)
[2021-05-09] MEDS: FUROSEMIDE 20 MG TABLET PO SCH (07:58)
[2021-05-09] MEDS: GABAPENTIN 300 MG CAPSULE. PO SCH (08:03)
--- NOTE | 2021-05-09 09:36 | PDOC ---
Date of Service: DATE: 05/09/21 TIME: 09:32 Subjective: Subjective: Wants her covers adjusted, feels cold. Diarrhea "still going." Staff present - says had a soft formed stool. Objective: Objective: Plans to DC today. Vital Signs: Vital Signs Date Time Temp Pulse Resp B/P (MAP) Pulse Ox O2 Delivery O2 Flow Rate FiO2 05/09/21 08:00 Nasal Cannula 3.0 05/09/21 07:56 89 117/60 05/09/21 07:22 99 05/09/21 07:00 98.1 16 98.1 Labs: Laboratory Tests Test 05/08/21 10:04 Lactic Acid Level 0.9 mmol/L PE: GEN: tangled in blankets and sheets, helped readjust LUNGS: clear, NC 3L HEART: tachycardic (123 on monitor in room) - seems new - alerted nurse ABD: S/ND/NT NEURO/PSYCH: A & O 3, forgetful A/P: C Diff - diarrhea seems better per staff ACD/ISSA/pancytopenia Hypokalemia - better (checked 05/08) Tachycardia -- Continue vanco. Justicifation of Admission Dx: Justifications for Admission: Justification of Admission Dx: Comment: NARA KHOURY May 09, 2021 09:36
[2021-05-09 10:38] VITALS: BP 139/71
--- NOTE | 2021-05-09 11:38 | NUR ---
SW following. Discussed with RN, pt's son provided vaccine card. [facility] today. [facility] by [facility] for [facility]. [facility] notifying son. RN notified.
[2021-05-09] MEDS: HYDROcodone/APAP 5/325MG 1 TAB TABLET PO PRN (13:20)
--- NOTE | 2021-05-10 11:16 | PDOC3 ---
[facility]-Discharge Summary Date of Admission: Date of Admission: May 03, 2021 Date of Discharge: Date of Discharge: May 09, 2021 Discharge Diagnosis: Discharge Diagnosis: Falls, diarrhea, weakness, hypokalemia, debility. The patient has been admitted. We will give her IV fluids, replace her potassium. Consult GI regarding the diarrhea stool studies. Home meds. Deep venous thrombosis prophylaxis. Full code. PT, OT. Hospital Course: Hospital Course: Patient clinically stable by time of discharge. She will need to continue a p.o. vancomycin course for her C. difficile infection for 10 days. Rest of hospital course was uneventful. 05/08/2021 No acute events overnight. Patient seen examined bedside. Patient having leg cramps. Still having some diarrhea but has decreased in frequency. She calls the squirts. Pending PT OT evaluation. Patient's chart, labs, images were reviewed and discussed with RN 05/07: Patient examined at bedside. States diarrhea is improved to just loose st ools. Continue oral vancomycin for C. difficile infection. Worse 3 L of oxygen chronically due to history of COPD. Will discuss with social workers about discharge in the next day or so to assisted living facility. 05/06 Patient evaluated examined at bedside. Said she was doing okay with ongoing diarrhea. C. difficile came back positive today start oral Vanco. We will continue to monitor. Discussed bedside RN and pharmacy. 05/05 Evaluated examined at bedside. Quite lethargic today today did receive opiates and Ativan overnight. Looks like A. fib with RVR on monitor. Check EKG. She was asleep in bed when this was noticed. We will continue to monitor. If ongoing can discuss with cardiology 05/04 Patient evaluate examined at bedside. Some ongoing diarrhea. Stool studies still pending. Discussed with bedside RN. elderly female who fell today. She got dizzy. She tried to grab a dresser, but still fell. She has been having some loose stools since July. We checked her labs. She got hypokalemia. Here, I discussed the case with the ER physician. We are going to admit the patient and probably get her to fdc eventually. Disposition: Disposition/Orders: D/C to Another Facility Activity: Activity: Resume previous activity Diet: Diet: Regular Medications: Home Meds Active Scripts Vancomycin Hcl (VANCOMYCIN HCL) 500 Mg Vial, 125 MG PO [id number] for C Diff i nfection for 10 Days, #40 EACH Prov:LILLIANA VERDE MD 05/08/21 Aspirin (ASPIRIN EC) 81 Mg Tablet.dr, 81 MG PO DAILYWBKFT for cad for 60 Days, #60 TAB.SR Prov:ELIESER VELAZCO MD 09/01/20 Hydrocodone/Acetaminophen (Lorcet 5-325 mg Tablet) 1 Each Tablet, 1 EACH PO Q6HRS, #120 TAB Prov:STEVEN HER MD 07/20/14 Lisinopril (LISINOPRIL) 20 Mg Tablet, 20 MG PO DAILY for FOR HYPERTENSION, #30 TAB 0 Refills Prov:STEVEN HER MD 07/20/14 [Toprol Xl] No Conflict Check Prov:STEVEN HER MD 07/20/14 Albuterol Sulfate (ALBUTEROL SULFATE NEB SOLN) 2.5 Mg/3 Ml Vial.neb, 1 VIAL NEB PRN Q4HRS, #50 VIAL Prov:STEVEN HER MD 07/20/14 Fluticasone/Salmeterol (ADVAIR 250-50 DISKUS) 1 Each Disk.w.dev, 1 PUFF IH BID, #3 INHALER 3 Refills Prov:STEVEN HER MD 07/20/14 Levothyroxine Sodium (SYNTHROID) 50 Mcg Tablet, 1 TAB PO DAILY, #30 TAB 5 Refills Prov:STEVEN HER MD 07/20/14 Atorvastatin Calcium (LIPITOR) 40 Mg Tablet, 40 MG PO QHS, #30 TAB Prov:Tian ALEXANDER MD 03/09/14 Reported Medications Clonazepam (CLONAZEPAM) 1 Mg Tablet, 1 TAB PO QHS, #30 TAB 07/20/14 Alprazolam (XANAX) 0.25 Mg Tablet, 0.25 MG PO PRN TID 04/09/13 Amlodipine Besylate (AMLODIPINE BESYLATE) 5 Mg Tablet, 10 MG PO HS 02/19/13 Furosemide (FUROSEMIDE) 20 Mg Tablet, 40 MG PO DAILY 02/19/13 Gabapentin (GABAPENTIN ) 100 Mg Capsule, 600 MG PO QID 02/19/13 Scheduled Albuterol Sulfate (Albuterol Sulfate Neb Soln), 1 VIAL NEB PRN Q4HRS Alprazolam (Xanax), 0.25 MG PO PRN TID, (Reported) Amlodipine Besylate (Amlodipine Besylate), 10 MG PO HS, (Reported) Aspirin (Aspirin Ec), 81 MG PO DAILYWBKFT Atorvastatin Calcium (Lipitor), 40 MG PO QHS Clonazepam (Clonazepam), 1 TAB PO QHS, (Reported) Fluticasone/Salmeterol (Advair 250-50 Diskus), 1 PUFF IH BID Furosemide (Furosemide), 40 MG PO DAILY, (Reported) Gabapentin (Gabapentin ), 600 MG PO QID, (Reported) Hydrocodone/Acetaminophen (Lorcet 5-325 mg Tablet), 1 EACH PO Q6HRS Levothyroxine Sodium (Synthroid), 1 TAB PO DAILY Lisinopril (Lisinopril), 20 MG PO DAILY Vancomycin Hcl (Vancomycin Hcl), 125 MG PO [id number] Miscellaneous Medications [Toprol Xl] Total Time: Total Time: Total time spent was 32 minutes in preparing scripts, discharge planning with SWI and RN and preparing this discharge summary Patient seen and examined on day of discharge. No acute abnormal findings. Justicifation of Admission Dx: Justifications for Admission: Justification of Admission Dx: Comment: LILLIANA VERDE MD May 10, 2021 11:16
== END 2021-05-09 14:06 | DRG 871 ==
LOC: ER 15:17 → ED HOLD 16:57 → 5 NORTH 18:40
PROVIDERS: ADMIT Internal Medicine; ATTEND Internal Medicine
DX: A41.9 Sepsis, unspecified organism (principal); E43 Unspecified severe protein-calorie malnutrition; A04.72 Enterocolitis due to Clostridium difficile, not specified as recurrent; D61.818 Other pancytopenia; J98.11 Atelectasis; E87.0 Hyperosmolality and hypernatremia; E87.6 Hypokalemia; E78.00 Pure hypercholesterolemia, unspecified; E78.5 Hyperlipidemia, unspecified; G89.29 Other chronic pain; I11.0 Hypertensive heart disease with heart failure; I48.91 Unspecified atrial fibrillation; I50.9 Heart failure, unspecified; J44.9 Chronic obstructive pulmonary disease, unspecified; W18.30XA Fall on same level, unspecified, initial encounter; Z20.822 Contact with and (suspected) exposure to COVID-19; F32.A Depression, unspecified; F41.9 Anxiety disorder, unspecified; M19.90 Unspecified osteoarthritis, unspecified site; R53.81 Other malaise; D63.8 Anemia in other chronic diseases classified elsewhere; D50.9 Iron deficiency anemia, unspecified; R00.0 Tachycardia, unspecified; Y92.009 Unspecified place in unspecified non-institutional (private) residence as the place of occurrence of the external cause; Z82.49 Family history of ischemic heart disease and other diseases of the circulatory system; Z83.3 Family history of diabetes mellitus; Z86.12 Personal history of poliomyelitis; Z90.49 Acquired absence of other specified parts of digestive tract; Z88.0 Allergy status to penicillin; Z88.8 Allergy status to other drugs, medicaments and biological substances; Y93.89 Activity, other specified; Y99.8 Other external cause status
CPT/HCPCS: 36415; 70450; 71045; 72125; 80048; 80053; 81001; 82274; 82607; 83540; 83550; 83605; 83631; 83690; 83735; 84484; 85025; 85027; 87086; 87177; 87205; 87209; 87493; 87505; 93005; 94640; 94760; 96374; J0696; J1644; J2270; J3480; J7030; U0003; 97110-GO; 97530-GP; 97535-GO; 99285-25; G0378; J7613; J7626